=== PATIENT | female | born 1950 | race Caucasian/White ===

== ENCOUNTER 2020-02-06 16:31 | Inpatient (IN) ==
[2020-02-06 18:23] LABS: Basophils % 0.7 % (0.0-0.8); Eosinophils # 0.1 10*3/uL (0.0-0.87); Eosinophils % 2.8 % (0.00-10.9); Hematocrit 24.9 VOL% (35.7-47.0); Immature Granulocytes % 1.8 %; Immature Granulocytes Absolute 0.05 #; Lymphocytes # 0.5 10*3/uL (1.4-4.0); Lymphocytes % 18.7 % (21.3-54.2); Mean Corpuscular HGB Conc 32.1 GM/DL (32-36); Mean Corpuscular Volume 95.4 FL (87-102); Mean Platelet Volume 8.8 FL (9.6-12.0); Platelet Count 263 T/CUMM (130-400); Red Blood Count 2.61 MC/CUMM (3.8-5.5); Red Cell Distribution Width 15.6 % (9.3-17.3); White Blood Count 2.8 T/CUMM (4-12)
[2020-02-06 18:44] LABS: Albumin 2.4 G/DL (3.4-5.0); Bilirubin,Total 0.4 MG/DL (0.2-1.0); Calcium 8.9 MG/DL (8.5-10.1); Osmolality,Calculated 303.8 MOS/KG (273-304); Total Protein 6.1 G/DL (6.4-8.3)
[2020-02-06 18:55] LABS: Band Neutrophils 1 % (0-10); Lymphocytes 15 % (20-55); Platelet Estimate Normal; Segmented Neutrophils 81 % (50-85); Total Cells Counted 100
[2020-02-06] MEDS ORDERED: DEXTROSE 50% 25 GM/50 ML VIAL IV PRN (20:26)
[2020-02-06] MEDS ORDERED: GLUCAGON 1 MG VIAL IM PRN (20:26)
[2020-02-06] MEDS ORDERED: ENOXAPARIN 40 MG/0.4 ML SYRINGE SUBCUT SCH ×2 (20:30→21:06)
[2020-02-06] MEDS ORDERED: ALBUTEROL/IPRATROPIUM 3 ML NEB RESP TX PRN (20:32)
[2020-02-06] MEDS ORDERED: SODIUM POLYSTYRENE SULFATE 15 GM/60 ML BOTTLE PO STA (20:37)
[2020-02-06] MEDS ORDERED: ENOXAPARIN 40 MG/0.4 ML SYRINGE ONE (21:17)
[2020-02-06] MEDS: cloNIDine 0.1 MG TABLET PO PRN (21:45)
[2020-02-06] MEDS: ONDANSETRON 4 MG/2 ML VIAL IV PRN (21:45)
[2020-02-06 21:46] LABS: % Iron Saturation 23.7 % (18-50); Ferritin 64.1 ng/ml (8-252)
[2020-02-06 22:00] LABS: Thyroid Stimulating Hormone 1.4 uIU/ml (0.358-3.74)
[2020-02-06] MEDS ORDERED: FUROSEMIDE 40 MG/4 ML VIAL IV ONE (23:59)
[2020-02-07] MEDS: HEPARIN 5,000 UNIT/1 ML VIAL SUBCUT SCH ×3 (00:17→21:27)
[2020-02-07] MEDS: DULoxetine 30 MG CAPSULE PO SCH ×3 (00:22→21:15)
[2020-02-07] MEDS: ACETAMINOPHEN 500 MG TABLET PO SCH ×2 (00:22→21:14)
[2020-02-07] MEDS: METOPROLOL SUCCINATE XL 100 MG TABLET PO SCH ×3 (00:22→21:15)
[2020-02-07] MEDS: INSULIN REGULAR 100 UNIT/ML SUBCUT SCH ×4 (01:16→21:21)
[2020-02-07] MEDS: TRIAMCINOLONE 0.1% CREAM 15 GM TUBE TOP SCH ×3 (01:16→21:26)
[2020-02-07] MEDS: FERROUS SULFATE 300 MG/5 ML UDCUP PO SCH ×3 (01:16→21:17)
[2020-02-07 01:29] LABS: Bacteria,Urine Occasional /HPF (Few); Bilirubin,Urine Negative (Negative); Blood, Urine Large mg/dL (Negative); Glucose,Urine (UA) >=500 mg/dL (Negative); Ketones,Urine Negative (Negative); Nitrite,Urine Negative (Negative); Protein,Urine Negative; RBC,Urine 19 /HPF (0-4); Squamous Epithelial Cell,Urine Occasional /HPF (0-10); Urine Appearance CLEAR (Clear); Urine Color Straw (Yellow); Urine Specific Gravity 1.025 (1.001-1.035); Urine Urobilinogen < 2.0 EU/DL (0.2-1.0); WBC,Urine 51 /HPF (0-6)
[2020-02-07 05:37] LABS: Eosinophils # 0.1 10*3/uL (0.0-0.87); Eosinophils % 4.5 % (0.00-10.9); Hematocrit 22.3 VOL% (35.7-47.0); Hemoglobin 7.2 GM/DL (12.0-16.0); Immature Granulocytes % 0.6 %; Immature Granulocytes Absolute 0.02 #; Lymphocytes # 0.7 10*3/uL (1.4-4.0); Lymphocytes % 22.4 % (21.3-54.2); Mean Corpuscular HGB Conc 32.3 GM/DL (32-36); Mean Corpuscular Volume 95.3 FL (87-102); Mean Platelet Volume 8.8 FL (9.6-12.0); Monocytes % 9.3 % (1.7-12.7); Neutrophils % 62.2 % (38.7-73.9); Platelet Count 217 T/CUMM (130-400); Red Blood Count 2.34 MC/CUMM (3.8-5.5); Red Cell Distribution Width 15.5 % (9.3-17.3); White Blood Count 3.1 T/CUMM (4-12)
[2020-02-07 06:02] LABS: Eosinophils 1 % (0-10); Hypochromasia 2+; Lymphocytes 17 % (20-55); Microcytosis 1+; Ovalocytes Slight; Platelet Estimate Adequate; Segmented Neutrophils 75 % (50-85); Total Cells Counted 100
[2020-02-07 06:14] LABS: Albumin 2.2 G/DL (3.4-5.0); Bilirubin,Total 0.6 MG/DL (0.2-1.0); Osmolality,Calculated 304.5 MOS/KG (273-304); Risk Ratio 7.35; Total Protein 5.8 G/DL (6.4-8.3); VLDL CHOLESTEROL 42.2 MG/DL
[2020-02-07] MEDS ORDERED: FUROSEMIDE 100 MG/10 ML VIAL IV ONE (09:10)
[2020-02-07] MEDS ORDERED: FUROSEMIDE 100 MG/10 ML VIAL ONE (09:17)
[2020-02-07] MEDS: carBAMazepine 200 MG TABLET PO SCH (09:53)
[2020-02-07] MEDS: MAGNESIUM CHLORIDE 64 MG TABLET PO SCH (09:54)
[2020-02-07] MEDS: PANTOPRAZOLE 40 MG TABLET PO SCH (09:55)
[2020-02-07] MEDS: MONTELUKAST 10 MG TABLET PO SCH (09:55)
[2020-02-07] MEDS: ASPIRIN CHEW 81 MG TABLET PO SCH (09:55)
[2020-02-07] MEDS: MULTIVITAMIN (CENTRUM) TABLET PO SCH (09:57)
[2020-02-07] MEDS: DILTIAZEM CD 180 MG CAPSULE PO SCH (09:57)
[2020-02-07] MEDS: ISOSORBIDE MONONITRATE 30 MG TABLET PO SCH (09:58)
[2020-02-07] MEDS: LORATADINE 10 MG TABLET PO SCH (09:58)
[2020-02-07] MEDS: ATORVASTATIN 40 MG TABLET PO SCH (09:58)
[2020-02-07] MEDS: cloNIDine 0.3 MG/24 HR PATCH TRANSDERM SCH (10:06)
[2020-02-07] MEDS: FUROSEMIDE 40 MG/4 ML VIAL IV SCH ×2 (12:17→21:17)
[2020-02-07] MEDS ORDERED: HEPARIN 10,000 UNIT/10 ML VIAL ONE (14:40)
[2020-02-07 15:30] LABS: Hepatitis B Core IgM Quant 0.07 Index; Hepatitis B Surface Ag Quant < 0.10 Index; Hepatitis B Surface Ag Result Negative (Negative); Hepatitis C Virus Ab Quant 0.02 Index; Hepatitis C Virus Ab Result Negative (Negative)
[2020-02-07] MEDS: LEVOFLOXACIN INJ 500 MG in PREMIX 1 EACH IV SCH (21:25)
[2020-02-08] MEDS: CYCLOBENZAPRINE 10 MG TABLET PO PRN ×2 (05:00→21:43)
[2020-02-08 05:02] LABS: Basophils % 0.7 % (0.0-0.8); Eosinophils # 0.1 10*3/uL (0.0-0.87); Eosinophils % 3.7 % (0.00-10.9); Hematocrit 21.5 VOL% (35.7-47.0); Hemoglobin 6.9 GM/DL (12.0-16.0); Immature Granulocytes % 0.4 %; Immature Granulocytes Absolute 0.01 #; Lymphocytes # 0.5 10*3/uL (1.4-4.0); Lymphocytes % 19.3 % (21.3-54.2); Mean Corpuscular HGB Conc 32.1 GM/DL (32-36); Mean Corpuscular Volume 93.9 FL (87-102); Mean Platelet Volume 8.8 FL (9.6-12.0); Monocytes % 9.7 % (1.7-12.7); Neutrophils % 66.2 % (38.7-73.9); Platelet Count 195 T/CUMM (130-400); Red Blood Count 2.29 MC/CUMM (3.8-5.5); Red Cell Distribution Width 15.3 % (9.3-17.3); White Blood Count 2.7 T/CUMM (4-12)
[2020-02-08 05:23] LABS: Calcium 8.4 MG/DL (8.5-10.1); Osmolality,Calculated 298.4 MOS/KG (273-304)
[2020-02-08] MEDS ORDERED: HEPARIN 10,000 UNIT/10 ML VIAL ONE (09:41)
[2020-02-08] MEDS: INSULIN REGULAR 100 UNIT/ML SUBCUT SCH ×4 (10:55→21:46)
[2020-02-08] MEDS ORDERED: SODIUM CHLORIDE 0.9% 1,000 ML IV PRN (11:02)
[2020-02-08] MEDS: FUROSEMIDE 40 MG/4 ML VIAL IV SCH ×2 (12:26→15:55)
[2020-02-08] MEDS: MAGNESIUM CHLORIDE 64 MG TABLET PO SCH (12:27)
[2020-02-08] MEDS: carBAMazepine 200 MG TABLET PO SCH (12:27)
[2020-02-08] MEDS: METOPROLOL SUCCINATE XL 100 MG TABLET PO SCH ×2 (12:27→21:43)
[2020-02-08] MEDS: MULTIVITAMIN (CENTRUM) TABLET PO SCH (12:27)
[2020-02-08] MEDS: MONTELUKAST 10 MG TABLET PO SCH (12:28)
[2020-02-08] MEDS: DULoxetine 30 MG CAPSULE PO SCH ×2 (12:28→21:42)
[2020-02-08] MEDS: DILTIAZEM CD 180 MG CAPSULE PO SCH (12:28)
[2020-02-08] MEDS: PANTOPRAZOLE 40 MG TABLET PO SCH (12:28)
[2020-02-08] MEDS: ASPIRIN CHEW 81 MG TABLET PO SCH (12:29)
[2020-02-08] MEDS: ISOSORBIDE MONONITRATE 30 MG TABLET PO SCH (12:29)
[2020-02-08] MEDS: HEPARIN 5,000 UNIT/1 ML VIAL SUBCUT SCH ×2 (12:30→21:47)
[2020-02-08] MEDS: FERROUS SULFATE 300 MG/5 ML UDCUP PO SCH ×2 (12:30→21:43)
[2020-02-08] MEDS: LORATADINE 10 MG TABLET PO SCH (12:34)
[2020-02-08] MEDS: TRIAMCINOLONE 0.1% CREAM 15 GM TUBE TOP SCH (12:44)
[2020-02-08] MEDS: ATORVASTATIN 40 MG TABLET PO SCH (12:48)
[2020-02-08] MEDS: ACETAMINOPHEN 500 MG TABLET PO SCH (21:43)
[2020-02-09] MEDS: TRIAMCINOLONE 0.1% CREAM 15 GM TUBE TOP SCH ×3 (00:50→22:02)
[2020-02-09 04:48] LABS: Basophils % 0.3 % (0.0-0.8); Eosinophils # 0.1 10*3/uL (0.0-0.87); Eosinophils % 3.6 % (0.00-10.9); Hematocrit 20.5 VOL% (35.7-47.0); Hemoglobin 6.8 GM/DL (12.0-16.0); Immature Granulocytes % 0.6 %; Immature Granulocytes Absolute 0.02 #; Lymphocytes # 0.7 10*3/uL (1.4-4.0); Lymphocytes % 19.5 % (21.3-54.2); Mean Corpuscular HGB Conc 33.2 GM/DL (32-36); Mean Corpuscular Volume 93.6 FL (87-102); Mean Platelet Volume 9.2 FL (9.6-12.0); Monocytes % 9.6 % (1.7-12.7); Neutrophils % 66.4 % (38.7-73.9); Platelet Count 186 T/CUMM (130-400); Red Blood Count 2.19 MC/CUMM (3.8-5.5); Red Cell Distribution Width 15.6 % (9.3-17.3); White Blood Count 3.3 T/CUMM (4-12)
[2020-02-09 05:11] LABS: Calcium 8.1 MG/DL (8.5-10.1); Osmolality,Calculated 289.5 MOS/KG (273-304)
[2020-02-09] MEDS: hydrALAZINE 20 MG/1 ML VIAL IV PRN (07:43)
[2020-02-09] MEDS: INSULIN REGULAR 100 UNIT/ML SUBCUT SCH ×4 (10:11→20:38)
[2020-02-09] MEDS: MAGNESIUM CHLORIDE 64 MG TABLET PO SCH (10:12)
[2020-02-09] MEDS: MONTELUKAST 10 MG TABLET PO SCH (10:12)
[2020-02-09] MEDS: FERROUS SULFATE 300 MG/5 ML UDCUP PO SCH ×2 (10:12→20:38)
[2020-02-09] MEDS: LORATADINE 10 MG TABLET PO SCH (10:13)
[2020-02-09] MEDS: DULoxetine 30 MG CAPSULE PO SCH ×2 (10:13→20:40)
[2020-02-09] MEDS: PANTOPRAZOLE 40 MG TABLET PO SCH (10:13)
[2020-02-09] MEDS: DILTIAZEM CD 180 MG CAPSULE PO SCH (10:13)
[2020-02-09] MEDS: ASPIRIN CHEW 81 MG TABLET PO SCH (10:14)
[2020-02-09] MEDS: ATORVASTATIN 40 MG TABLET PO SCH (10:15)
[2020-02-09] MEDS: carBAMazepine 200 MG TABLET PO SCH (10:15)
[2020-02-09] MEDS: MULTIVITAMIN (CENTRUM) TABLET PO SCH (10:15)
[2020-02-09] MEDS: FUROSEMIDE 40 MG/4 ML VIAL IV SCH ×2 (13:46→17:38)
[2020-02-09] MEDS: METOPROLOL SUCCINATE XL 100 MG TABLET PO SCH ×2 (13:47→20:40)
[2020-02-09] MEDS: ISOSORBIDE MONONITRATE 30 MG TABLET PO SCH (13:47)
[2020-02-09] MEDS: HEPARIN 5,000 UNIT/1 ML VIAL SUBCUT SCH ×2 (13:48→20:40)
[2020-02-09] MEDS: LEVOFLOXACIN INJ 500 MG in PREMIX 1 EACH IV SCH (17:40)
[2020-02-09] MEDS ORDERED: HEPARIN 10,000 UNIT/10 ML VIAL ONE (17:47)
[2020-02-09] MEDS: CYCLOBENZAPRINE 10 MG TABLET PO PRN (20:38)
[2020-02-09] MEDS: ACETAMINOPHEN 500 MG TABLET PO SCH (20:40)
[2020-02-10 06:09] LABS: Basophils % 0.3 % (0.0-0.8); Eosinophils # 0.1 10*3/uL (0.0-0.87); Eosinophils % 3.1 % (0.00-10.9); Hematocrit 32.1 VOL% (35.7-47.0); Hemoglobin 10.6 GM/DL (12.0-16.0); Immature Granulocytes Absolute 0.04 #; Lymphocytes # 0.6 10*3/uL (1.4-4.0); Lymphocytes % 14.6 % (21.3-54.2); Mean Corpuscular Volume 88.2 FL (87-102); Mean Platelet Volume 9.5 FL (9.6-12.0); Monocytes % 10.2 % (1.7-12.7); Neutrophils % 70.8 % (38.7-73.9); Platelet Count 170 T/CUMM (130-400); Red Blood Count 3.64 MC/CUMM (3.8-5.5); Red Cell Distribution Width 16.1 % (9.3-17.3); White Blood Count 3.8 T/CUMM (4-12)
[2020-02-10 06:27] LABS: Calcium 8.3 MG/DL (8.5-10.1); Osmolality,Calculated 281.7 MOS/KG (273-304)
[2020-02-10] MEDS: FUROSEMIDE 40 MG/4 ML VIAL IV SCH ×2 (08:11→15:52)
[2020-02-10] MEDS: cloNIDine 0.1 MG TABLET PO PRN ×2 (08:11→11:03)
[2020-02-10] MEDS: MONTELUKAST 10 MG TABLET PO SCH (09:41)
[2020-02-10] MEDS: METOPROLOL SUCCINATE XL 100 MG TABLET PO SCH ×2 (09:41→22:08)
[2020-02-10] MEDS: MULTIVITAMIN (CENTRUM) TABLET PO SCH (09:41)
[2020-02-10] MEDS: DULoxetine 30 MG CAPSULE PO SCH ×2 (09:41→22:08)
[2020-02-10] MEDS: MAGNESIUM CHLORIDE 64 MG TABLET PO SCH (09:41)
[2020-02-10] MEDS: DILTIAZEM CD 180 MG CAPSULE PO SCH (09:41)
[2020-02-10] MEDS: ASPIRIN CHEW 81 MG TABLET PO SCH (09:41)
[2020-02-10] MEDS: carBAMazepine 200 MG TABLET PO SCH (09:41)
[2020-02-10] MEDS: PANTOPRAZOLE 40 MG TABLET PO SCH (09:41)
[2020-02-10] MEDS: FERROUS SULFATE 300 MG/5 ML UDCUP PO SCH ×2 (09:42→22:07)
[2020-02-10] MEDS: ISOSORBIDE MONONITRATE 30 MG TABLET PO SCH (09:42)
[2020-02-10] MEDS: LORATADINE 10 MG TABLET PO SCH (09:42)
[2020-02-10] MEDS: ATORVASTATIN 40 MG TABLET PO SCH (09:42)
[2020-02-10] MEDS: INSULIN REGULAR 100 UNIT/ML SUBCUT SCH ×4 (09:44→20:09)
[2020-02-10] MEDS: HEPARIN 5,000 UNIT/1 ML VIAL SUBCUT SCH ×2 (09:44→22:09)
[2020-02-10] MEDS: hydrALAZINE 20 MG/1 ML VIAL IV PRN (10:50)
[2020-02-10] MEDS: TRIAMCINOLONE 0.1% CREAM 15 GM TUBE TOP SCH ×2 (11:51→22:52)
[2020-02-10] MEDS: minoxidiL 2.5 MG TABLET PO SCH (22:08)
[2020-02-10] MEDS: ACETAMINOPHEN 500 MG TABLET PO SCH (22:08)
[2020-02-11 06:12] LABS: Basophils % 0.5 % (0.0-0.8); Eosinophils # 0.1 10*3/uL (0.0-0.87); Eosinophils % 2.8 % (0.00-10.9); Hematocrit 31.9 VOL% (35.7-47.0); Hemoglobin 10.5 GM/DL (12.0-16.0); Immature Granulocytes % 0.5 %; Immature Granulocytes Absolute 0.02 #; Lymphocytes # 0.5 10*3/uL (1.4-4.0); Lymphocytes % 12.6 % (21.3-54.2); Mean Corpuscular HGB Conc 32.9 GM/DL (32-36); Mean Corpuscular Volume 89.6 FL (87-102); Mean Platelet Volume 9.8 FL (9.6-12.0); Monocytes % 10.3 % (1.7-12.7); Neutrophils % 73.3 % (38.7-73.9); Platelet Count 162 T/CUMM (130-400); Red Blood Count 3.56 MC/CUMM (3.8-5.5); Red Cell Distribution Width 16.2 % (9.3-17.3); White Blood Count 3.9 T/CUMM (4-12)
[2020-02-11 06:25] LABS: Calcium 8.9 MG/DL (8.5-10.1); Osmolality,Calculated 279.2 MOS/KG (273-304)
[2020-02-11] MEDS: FUROSEMIDE 40 MG/4 ML VIAL IV SCH ×2 (08:18→15:06)
[2020-02-11] MEDS: DILTIAZEM CD 180 MG CAPSULE PO SCH (08:19)
[2020-02-11] MEDS: MAGNESIUM CHLORIDE 64 MG TABLET PO SCH (08:19)
[2020-02-11] MEDS: FERROUS SULFATE 300 MG/5 ML UDCUP PO SCH ×2 (08:19→22:57)
[2020-02-11] MEDS: DULoxetine 30 MG CAPSULE PO SCH ×2 (08:19→22:58)
[2020-02-11] MEDS: LORATADINE 10 MG TABLET PO SCH (08:20)
[2020-02-11] MEDS: MONTELUKAST 10 MG TABLET PO SCH (08:20)
[2020-02-11] MEDS: MULTIVITAMIN (CENTRUM) TABLET PO SCH (08:20)
[2020-02-11] MEDS: ASPIRIN CHEW 81 MG TABLET PO SCH (08:20)
[2020-02-11] MEDS: ATORVASTATIN 40 MG TABLET PO SCH (08:20)
[2020-02-11] MEDS: INSULIN REGULAR 100 UNIT/ML SUBCUT SCH ×4 (08:21→22:59)
[2020-02-11] MEDS: PANTOPRAZOLE 40 MG TABLET PO SCH (08:21)
[2020-02-11] MEDS: carBAMazepine 200 MG TABLET PO SCH (08:21)
[2020-02-11] MEDS: METOPROLOL SUCCINATE XL 100 MG TABLET PO SCH ×2 (08:47→22:58)
[2020-02-11] MEDS: ISOSORBIDE MONONITRATE 30 MG TABLET PO SCH (08:47)
[2020-02-11] MEDS: minoxidiL 2.5 MG TABLET PO SCH ×2 (08:48→22:58)
[2020-02-11] MEDS: HEPARIN 5,000 UNIT/1 ML VIAL SUBCUT SCH ×2 (08:51→23:00)
[2020-02-11] MEDS: TRIAMCINOLONE 0.1% CREAM 15 GM TUBE TOP SCH ×2 (09:39→22:59)
[2020-02-11] MEDS: FLUTICASONE 50 MCG NASAL SPRAY 16 GM BOTTLE BOTH NARES SCH (15:12)
[2020-02-11] MEDS: ONDANSETRON 4 MG/2 ML VIAL IV PRN (17:52)
[2020-02-11] MEDS: ACETAMINOPHEN 500 MG TABLET PO SCH (22:58)
[2020-02-12 06:03] LABS: Calcium 8.6 MG/DL (8.5-10.1); Osmolality,Calculated 283.2 MOS/KG (273-304)
[2020-02-12] MEDS: INSULIN REGULAR 100 UNIT/ML SUBCUT SCH ×4 (08:30→22:18)
[2020-02-12] MEDS: minoxidiL 2.5 MG TABLET PO SCH (08:49)
[2020-02-12] MEDS: HEPARIN 5,000 UNIT/1 ML VIAL SUBCUT SCH ×2 (08:50→21:57)
[2020-02-12] MEDS: FERROUS SULFATE 300 MG/5 ML UDCUP PO SCH ×2 (08:50→21:54)
[2020-02-12] MEDS: FUROSEMIDE 40 MG/4 ML VIAL IV SCH ×2 (08:50→17:01)
[2020-02-12] MEDS: DILTIAZEM CD 180 MG CAPSULE PO SCH (08:50)
[2020-02-12] MEDS: LORATADINE 10 MG TABLET PO SCH (08:50)
[2020-02-12] MEDS: carBAMazepine 200 MG TABLET PO SCH (08:50)
[2020-02-12] MEDS: METOPROLOL SUCCINATE XL 100 MG TABLET PO SCH ×2 (08:51→21:54)
[2020-02-12] MEDS: ATORVASTATIN 40 MG TABLET PO SCH (08:51)
[2020-02-12] MEDS: MULTIVITAMIN (CENTRUM) TABLET PO SCH (08:51)
[2020-02-12] MEDS: ISOSORBIDE MONONITRATE 30 MG TABLET PO SCH (08:51)
[2020-02-12] MEDS: ASPIRIN CHEW 81 MG TABLET PO SCH (08:51)
[2020-02-12] MEDS: MAGNESIUM CHLORIDE 64 MG TABLET PO SCH (08:51)
[2020-02-12] MEDS: DULoxetine 30 MG CAPSULE PO SCH ×2 (08:51→21:54)
[2020-02-12] MEDS: PANTOPRAZOLE 40 MG TABLET PO SCH (08:51)
[2020-02-12] MEDS: MONTELUKAST 10 MG TABLET PO SCH (08:51)
[2020-02-12] MEDS: FLUTICASONE 50 MCG NASAL SPRAY 16 GM BOTTLE BOTH NARES SCH (08:52)
[2020-02-12] MEDS: TRIAMCINOLONE 0.1% CREAM 15 GM TUBE TOP SCH ×2 (08:52→21:56)
[2020-02-12] MEDS ORDERED: ceFAZolin 1,000 MG in SYRINGE 1 EACH IV ONE (11:03)
[2020-02-12] MEDS ORDERED: HEPARIN 10,000 UNIT/10 ML VIAL IV SCH (11:30)
[2020-02-12] MEDS ORDERED: TUBERCULIN SKIN TEST 0.1 ML SYRINGE INTRADERM ONE (17:09)
[2020-02-12] MEDS: ACETAMINOPHEN 500 MG TABLET PO SCH (21:54)
[2020-02-13] MEDS: minoxidiL 2.5 MG TABLET PO SCH ×3 (00:41→22:22)
[2020-02-13] MEDS ORDERED: ceFAZolin 1,000 MG in SYRINGE 1 EACH IV ONE (05:30)
[2020-02-13] MEDS: INSULIN REGULAR 100 UNIT/ML SUBCUT SCH ×4 (06:59→23:49)
[2020-02-13] MEDS ORDERED: propofoL 200 MG/20 ML VIAL IV ONE (08:00)
[2020-02-13] MEDS ORDERED: LIDOCAINE 2% 5 ML VIAL ONE (08:00)
[2020-02-13] MEDS ORDERED: fentaNYL 100 MCG/2 ML VIAL ONE (08:01)
[2020-02-13] MEDS ORDERED: ONDANSETRON 4 MG/2 ML VIAL ONE (08:01)
[2020-02-13] MEDS ORDERED: MIDAZOLAM 2 MG/2 ML VIAL ONE (08:01)
[2020-02-13] MEDS ORDERED: DEXAMETHASONE 4 MG/1 ML VIAL ONE (08:01)
[2020-02-13] MEDS ORDERED: hydrALAZINE 20 MG/1 ML VIAL ONE (08:01)
[2020-02-13] MEDS ORDERED: ETOMIDATE 40 MG/20 ML VIAL IV ONE (08:02)
[2020-02-13] MEDS: METOPROLOL SUCCINATE XL 100 MG TABLET PO SCH ×2 (09:32→22:21)
[2020-02-13] MEDS: DULoxetine 30 MG CAPSULE PO SCH ×2 (09:32→22:21)
[2020-02-13] MEDS: DILTIAZEM CD 180 MG CAPSULE PO SCH (09:32)
[2020-02-13] MEDS: carBAMazepine 200 MG TABLET PO SCH (09:32)
[2020-02-13] MEDS: HEPARIN 5,000 UNIT/1 ML VIAL SUBCUT SCH ×2 (09:33→22:27)
[2020-02-13] MEDS: PANTOPRAZOLE 40 MG TABLET PO SCH (09:33)
[2020-02-13] MEDS: ATORVASTATIN 40 MG TABLET PO SCH (09:33)
[2020-02-13] MEDS: MONTELUKAST 10 MG TABLET PO SCH (09:33)
[2020-02-13] MEDS: MAGNESIUM CHLORIDE 64 MG TABLET PO SCH (09:33)
[2020-02-13] MEDS: ISOSORBIDE MONONITRATE 30 MG TABLET PO SCH (09:33)
[2020-02-13] MEDS: LORATADINE 10 MG TABLET PO SCH (09:33)
[2020-02-13] MEDS: FUROSEMIDE 40 MG/4 ML VIAL IV SCH ×2 (09:34→15:34)
[2020-02-13] MEDS: ASPIRIN CHEW 81 MG TABLET PO SCH (09:34)
[2020-02-13] MEDS: FERROUS SULFATE 300 MG/5 ML UDCUP PO SCH ×2 (09:34→22:24)
[2020-02-13] MEDS: MULTIVITAMIN (CENTRUM) TABLET PO SCH (09:34)
[2020-02-13] MEDS: FLUTICASONE 50 MCG NASAL SPRAY 16 GM BOTTLE BOTH NARES SCH (09:35)
[2020-02-13] MEDS: TRIAMCINOLONE 0.1% CREAM 15 GM TUBE TOP SCH (14:29)
[2020-02-13 17:50] LABS: Hematocrit 33.7 VOL% (35.7-47.0); Hemoglobin 10.7 GM/DL (12.0-16.0)
[2020-02-13] MEDS: ACETAMINOPHEN 500 MG TABLET PO SCH (22:23)
[2020-02-14] MEDS: TRIAMCINOLONE 0.1% CREAM 15 GM TUBE TOP SCH ×3 (05:18→22:19)
[2020-02-14 08:01] LABS: Basophils # 0.1 10*3/uL (0.0-0.2); Eosinophils # 0.2 10*3/uL (0.0-0.87); Eosinophils % 3.6 % (0.00-10.9); Hematocrit 28.8 VOL% (35.7-47.0); Hemoglobin 9.4 GM/DL (12.0-16.0); Immature Granulocytes % 0.5 %; Immature Granulocytes Absolute 0.03 #; Lymphocytes # 0.7 10*3/uL (1.4-4.0); Lymphocytes % 12.2 % (21.3-54.2); Mean Corpuscular HGB Conc 32.6 GM/DL (32-36); Mean Corpuscular Volume 91.1 FL (87-102); Mean Platelet Volume 9.6 FL (9.6-12.0); Monocytes % 12.2 % (1.7-12.7); Neutrophils % 70.5 % (38.7-73.9); Platelet Count 259 T/CUMM (130-400); Red Blood Count 3.16 MC/CUMM (3.8-5.5); Red Cell Distribution Width 15.8 % (9.3-17.3); White Blood Count 5.8 T/CUMM (4-12)
[2020-02-14] MEDS: PANTOPRAZOLE 40 MG TABLET PO SCH (09:57)
[2020-02-14] MEDS: DILTIAZEM CD 180 MG CAPSULE PO SCH (09:57)
[2020-02-14] MEDS: DULoxetine 30 MG CAPSULE PO SCH ×2 (09:57→22:12)
[2020-02-14] MEDS: ISOSORBIDE MONONITRATE 30 MG TABLET PO SCH (09:57)
[2020-02-14] MEDS: LORATADINE 10 MG TABLET PO SCH (09:57)
[2020-02-14] MEDS: ATORVASTATIN 40 MG TABLET PO SCH (09:58)
[2020-02-14] MEDS: FERROUS SULFATE 300 MG/5 ML UDCUP PO SCH ×2 (09:58→22:15)
[2020-02-14] MEDS: MAGNESIUM CHLORIDE 64 MG TABLET PO SCH (09:58)
[2020-02-14] MEDS: FUROSEMIDE 40 MG/4 ML VIAL IV SCH ×2 (09:58→17:05)
[2020-02-14] MEDS: carBAMazepine 200 MG TABLET PO SCH (09:58)
[2020-02-14] MEDS: METOPROLOL SUCCINATE XL 100 MG TABLET PO SCH ×2 (09:58→22:12)
[2020-02-14] MEDS: ASPIRIN CHEW 81 MG TABLET PO SCH (09:58)
[2020-02-14] MEDS: MULTIVITAMIN (CENTRUM) TABLET PO SCH (09:58)
[2020-02-14] MEDS: cloNIDine 0.3 MG/24 HR PATCH TRANSDERM SCH (10:00)
[2020-02-14] MEDS: FLUTICASONE 50 MCG NASAL SPRAY 16 GM BOTTLE BOTH NARES SCH (10:01)
[2020-02-14] MEDS: MONTELUKAST 10 MG TABLET PO SCH (10:01)
[2020-02-14] MEDS: INSULIN REGULAR 100 UNIT/ML SUBCUT SCH ×4 (10:08→22:19)
[2020-02-14] MEDS: minoxidiL 2.5 MG TABLET PO SCH ×2 (10:09→22:13)
[2020-02-14] MEDS: HEPARIN 5,000 UNIT/1 ML VIAL SUBCUT SCH (10:10)
[2020-02-14 12:10] LABS: Hematocrit 28.9 VOL% (35.7-47.0); Hemoglobin 9.7 GM/DL (12.0-16.0)
[2020-02-14] MEDS: ACETAMINOPHEN 500 MG TABLET PO SCH (22:13)
[2020-02-14] MEDS ORDERED: ZALEPLON 5 MG CAPSULE PO ONE (23:04)
[2020-02-15 05:42] LABS: Basophils # 0.1 10*3/uL (0.0-0.2); Basophils % 0.9 % (0.0-0.8); Eosinophils # 0.4 10*3/uL (0.0-0.87); Eosinophils % 7.3 % (0.00-10.9); Hematocrit 24.2 VOL% (35.7-47.0); Hemoglobin 7.9 GM/DL (12.0-16.0); Immature Granulocytes % 0.4 %; Immature Granulocytes Absolute 0.02 #; Lymphocytes # 0.7 10*3/uL (1.4-4.0); Lymphocytes % 12.1 % (21.3-54.2); Mean Corpuscular HGB Conc 32.6 GM/DL (32-36); Mean Corpuscular Volume 91.3 FL (87-102); Mean Platelet Volume 9.4 FL (9.6-12.0); Monocytes % 12.5 % (1.7-12.7); Neutrophils % 66.8 % (38.7-73.9); Platelet Count 208 T/CUMM (130-400); Red Blood Count 2.65 MC/CUMM (3.8-5.5); White Blood Count 5.4 T/CUMM (4-12)
[2020-02-15 06:00] LABS: Calcium 8.8 MG/DL (8.5-10.1); Osmolality,Calculated 288.4 MOS/KG (273-304)
[2020-02-15] MEDS: INSULIN REGULAR 100 UNIT/ML SUBCUT SCH ×4 (08:22→21:30)
[2020-02-15] MEDS: FUROSEMIDE 40 MG/4 ML VIAL IV SCH ×2 (09:26→16:45)
[2020-02-15] MEDS ORDERED: HEPARIN 10,000 UNIT/10 ML VIAL ONE (10:16)
[2020-02-15] MEDS: TRIAMCINOLONE 0.1% CREAM 15 GM TUBE TOP SCH ×2 (10:20→21:24)
[2020-02-15 12:27] LABS: Hematocrit 24.7 VOL% (35.7-47.0); Hemoglobin 8.2 GM/DL (12.0-16.0)
[2020-02-15] MEDS: DULoxetine 30 MG CAPSULE PO SCH ×2 (14:18→21:23)
[2020-02-15] MEDS: FLUTICASONE 50 MCG NASAL SPRAY 16 GM BOTTLE BOTH NARES SCH (14:19)
[2020-02-15] MEDS: FERROUS SULFATE 300 MG/5 ML UDCUP PO SCH ×2 (14:19→21:23)
[2020-02-15] MEDS: minoxidiL 2.5 MG TABLET PO SCH ×2 (14:19→21:23)
[2020-02-15] MEDS: METOPROLOL SUCCINATE XL 100 MG TABLET PO SCH ×2 (14:20→21:24)
[2020-02-15] MEDS: ISOSORBIDE MONONITRATE 30 MG TABLET PO SCH (14:29)
[2020-02-15] MEDS: carBAMazepine 200 MG TABLET PO SCH (14:29)
[2020-02-15] MEDS: MULTIVITAMIN (CENTRUM) TABLET PO SCH (14:29)
[2020-02-15] MEDS: DILTIAZEM CD 180 MG CAPSULE PO SCH (14:29)
[2020-02-15] MEDS: MAGNESIUM CHLORIDE 64 MG TABLET PO SCH (14:29)
[2020-02-15] MEDS: LORATADINE 10 MG TABLET PO SCH (14:29)
[2020-02-15] MEDS: PANTOPRAZOLE 40 MG TABLET PO SCH (14:30)
[2020-02-15] MEDS: MONTELUKAST 10 MG TABLET PO SCH (14:30)
[2020-02-15] MEDS: ATORVASTATIN 40 MG TABLET PO SCH (14:33)
[2020-02-15] MEDS: ACETAMINOPHEN 500 MG TABLET PO SCH (21:23)
[2020-02-15] MEDS: HEPARIN 5,000 UNIT/1 ML VIAL SUBCUT SCH (21:31)
[2020-02-16 05:45] LABS: Basophils % 1.1 % (0.0-0.8); Eosinophils # 0.3 10*3/uL (0.0-0.87); Eosinophils % 7.5 % (0.00-10.9); Hematocrit 22.6 VOL% (35.7-47.0); Hemoglobin 7.6 GM/DL (12.0-16.0); Immature Granulocytes % 0.6 %; Immature Granulocytes Absolute 0.02 #; Lymphocytes # 0.7 10*3/uL (1.4-4.0); Lymphocytes % 18.7 % (21.3-54.2); Mean Corpuscular HGB Conc 33.6 GM/DL (32-36); Mean Corpuscular Volume 90.4 FL (87-102); Mean Platelet Volume 10.2 FL (9.6-12.0); Monocytes % 15.6 % (1.7-12.7); Neutrophils % 56.5 % (38.7-73.9); Platelet Count 211 T/CUMM (130-400); Red Cell Distribution Width 15.7 % (9.3-17.3); White Blood Count 3.6 T/CUMM (4-12)
[2020-02-16 06:31] LABS: Eosinophils 3 % (0-10); Hypochromasia 2+; Lymphocytes 17 % (20-55); Microcytosis 1+; Platelet Estimate Adequate; Segmented Neutrophils 70 % (50-85); Total Cells Counted 100
[2020-02-16] MEDS: INSULIN REGULAR 100 UNIT/ML SUBCUT SCH ×4 (08:47→21:34)
[2020-02-16] MEDS ORDERED: SECUKINUMAB 150 MG/ML SUBCUT SCH (09:00)
[2020-02-16] MEDS: DULoxetine 30 MG CAPSULE PO SCH ×2 (11:26→21:33)
[2020-02-16] MEDS: FUROSEMIDE 40 MG/4 ML VIAL IV SCH ×2 (11:26→17:31)
[2020-02-16] MEDS: FLUTICASONE 50 MCG NASAL SPRAY 16 GM BOTTLE BOTH NARES SCH (11:27)
[2020-02-16] MEDS: minoxidiL 2.5 MG TABLET PO SCH ×2 (11:27→21:33)
[2020-02-16] MEDS: TRIAMCINOLONE 0.1% CREAM 15 GM TUBE TOP SCH ×2 (11:27→21:33)
[2020-02-16] MEDS: METOPROLOL SUCCINATE XL 100 MG TABLET PO SCH ×2 (11:27→21:33)
[2020-02-16] MEDS: FERROUS SULFATE 300 MG/5 ML UDCUP PO SCH ×2 (11:27→21:33)
[2020-02-16] MEDS: ATORVASTATIN 40 MG TABLET PO SCH (12:04)
[2020-02-16] MEDS: carBAMazepine 200 MG TABLET PO SCH (12:04)
[2020-02-16] MEDS: LORATADINE 10 MG TABLET PO SCH (12:04)
[2020-02-16] MEDS: MAGNESIUM CHLORIDE 64 MG TABLET PO SCH (12:04)
[2020-02-16] MEDS: ISOSORBIDE MONONITRATE 30 MG TABLET PO SCH (12:04)
[2020-02-16] MEDS: MONTELUKAST 10 MG TABLET PO SCH (12:04)
[2020-02-16] MEDS: PANTOPRAZOLE 40 MG TABLET PO SCH (12:04)
[2020-02-16] MEDS: DILTIAZEM CD 180 MG CAPSULE PO SCH (12:04)
[2020-02-16] MEDS: HEPARIN 5,000 UNIT/1 ML VIAL SUBCUT SCH ×2 (12:05→21:34)
[2020-02-16] MEDS: MULTIVITAMIN (CENTRUM) TABLET PO SCH (12:05)
[2020-02-16] MEDS: ACETAMINOPHEN 500 MG TABLET PO SCH (21:33)
[2020-02-16] MEDS: ACETAMINOPHEN 325 MG TABLET PO PRN (23:51)
[2020-02-17 05:49] LABS: Basophils % 1.2 % (0.0-0.8); Eosinophils # 0.3 10*3/uL (0.0-0.87); Eosinophils % 9.9 % (0.00-10.9); Hematocrit 21.9 VOL% (35.7-47.0); Hemoglobin 7.3 GM/DL (12.0-16.0); Immature Granulocytes % 0.3 %; Immature Granulocytes Absolute 0.01 #; Lymphocytes # 0.6 10*3/uL (1.4-4.0); Lymphocytes % 18.4 % (21.3-54.2); Mean Corpuscular HGB Conc 33.3 GM/DL (32-36); Mean Corpuscular Volume 90.9 FL (87-102); Mean Platelet Volume 9.9 FL (9.6-12.0); Monocytes % 14.9 % (1.7-12.7); Neutrophils % 55.3 % (38.7-73.9); Platelet Count 224 T/CUMM (130-400); Red Blood Count 2.41 MC/CUMM (3.8-5.5); Red Cell Distribution Width 15.4 % (9.3-17.3); White Blood Count 3.4 T/CUMM (4-12)
[2020-02-17 06:00] LABS: Calcium 8.8 MG/DL (8.5-10.1); Osmolality,Calculated 279.1 MOS/KG (273-304)
[2020-02-17] MEDS ORDERED: SODIUM CHLORIDE 0.9% 1,000 ML IV PRN (08:49)
[2020-02-17] MEDS: INSULIN REGULAR 100 UNIT/ML SUBCUT SCH ×4 (09:08→21:33)
[2020-02-17] MEDS ORDERED: ZOLPIDEM 5 MG TABLET PO PRN (09:23)
[2020-02-17] MEDS: DILTIAZEM CD 180 MG CAPSULE PO SCH (09:42)
[2020-02-17] MEDS: MAGNESIUM CHLORIDE 64 MG TABLET PO SCH (09:43)
[2020-02-17] MEDS: carBAMazepine 200 MG TABLET PO SCH (09:43)
[2020-02-17] MEDS: ISOSORBIDE MONONITRATE 30 MG TABLET PO SCH (09:44)
[2020-02-17] MEDS: ATORVASTATIN 40 MG TABLET PO SCH (09:44)
[2020-02-17] MEDS: DULoxetine 30 MG CAPSULE PO SCH ×2 (09:44→21:30)
[2020-02-17] MEDS: MULTIVITAMIN (CENTRUM) TABLET PO SCH (09:44)
[2020-02-17] MEDS: LORATADINE 10 MG TABLET PO SCH (09:45)
[2020-02-17] MEDS: PANTOPRAZOLE 40 MG TABLET PO SCH (09:45)
[2020-02-17] MEDS: FERROUS SULFATE 300 MG/5 ML UDCUP PO SCH ×2 (09:45→21:30)
[2020-02-17] MEDS: MONTELUKAST 10 MG TABLET PO SCH (09:45)
[2020-02-17] MEDS: FUROSEMIDE 40 MG/4 ML VIAL IV SCH ×2 (09:49→17:19)
[2020-02-17] MEDS: HEPARIN 5,000 UNIT/1 ML VIAL SUBCUT SCH ×2 (09:49→21:30)
[2020-02-17] MEDS: minoxidiL 2.5 MG TABLET PO SCH ×2 (09:49→21:30)
[2020-02-17] MEDS: FLUTICASONE 50 MCG NASAL SPRAY 16 GM BOTTLE BOTH NARES SCH (09:59)
[2020-02-17] MEDS: TRIAMCINOLONE 0.1% CREAM 15 GM TUBE TOP SCH ×2 (09:59→21:34)
[2020-02-17] MEDS: METOPROLOL SUCCINATE XL 100 MG TABLET PO SCH ×2 (10:00→21:30)
[2020-02-17] MEDS: ACETAMINOPHEN 500 MG TABLET PO SCH (21:30)
[2020-02-18] MEDS: ACETAMINOPHEN 325 MG TABLET PO PRN (05:34)
[2020-02-18 06:11] LABS: Basophils % 0.9 % (0.0-0.8); Eosinophils # 0.3 10*3/uL (0.0-0.87); Eosinophils % 8.1 % (0.00-10.9); Hematocrit 22.6 VOL% (35.7-47.0); Hemoglobin 7.3 GM/DL (12.0-16.0); Immature Granulocytes % 0.6 %; Immature Granulocytes Absolute 0.02 #; Lymphocytes # 0.5 10*3/uL (1.4-4.0); Lymphocytes % 15.1 % (21.3-54.2); Mean Corpuscular HGB Conc 32.3 GM/DL (32-36); Mean Platelet Volume 9.7 FL (9.6-12.0); Monocytes % 13.1 % (1.7-12.7); Neutrophils % 62.2 % (38.7-73.9); Platelet Count 218 T/CUMM (130-400); Red Blood Count 2.43 MC/CUMM (3.8-5.5); Red Cell Distribution Width 15.2 % (9.3-17.3); White Blood Count 3.4 T/CUMM (4-12)
[2020-02-18 06:27] LABS: Osmolality,Calculated 279.4 MOS/KG (273-304)
[2020-02-18] MEDS: INSULIN REGULAR 100 UNIT/ML SUBCUT SCH (07:30)
[2020-02-18] MEDS: carBAMazepine 200 MG TABLET PO SCH (09:41)
[2020-02-18] MEDS: MONTELUKAST 10 MG TABLET PO SCH (09:42)
[2020-02-18] MEDS: ASPIRIN CHEW 81 MG TABLET PO SCH (09:42)
[2020-02-18] MEDS: MULTIVITAMIN (CENTRUM) TABLET PO SCH (09:42)
[2020-02-18] MEDS: METOPROLOL SUCCINATE XL 100 MG TABLET PO SCH (09:42)
[2020-02-18] MEDS: DILTIAZEM CD 180 MG CAPSULE PO SCH (09:42)
[2020-02-18] MEDS: ATORVASTATIN 40 MG TABLET PO SCH (09:42)
[2020-02-18] MEDS: minoxidiL 2.5 MG TABLET PO SCH (09:42)
[2020-02-18] MEDS: LORATADINE 10 MG TABLET PO SCH (09:42)
[2020-02-18] MEDS: ISOSORBIDE MONONITRATE 30 MG TABLET PO SCH (09:42)
[2020-02-18] MEDS: FERROUS SULFATE 300 MG/5 ML UDCUP PO SCH (09:43)
[2020-02-18] MEDS: FUROSEMIDE 40 MG/4 ML VIAL IV SCH (09:43)
[2020-02-18] MEDS: HEPARIN 5,000 UNIT/1 ML VIAL SUBCUT SCH (09:43)
[2020-02-18] MEDS: FLUTICASONE 50 MCG NASAL SPRAY 16 GM BOTTLE BOTH NARES SCH (09:45)
[2020-02-18] MEDS: PANTOPRAZOLE 40 MG TABLET PO SCH (09:45)
[2020-02-18] MEDS: DULoxetine 30 MG CAPSULE PO SCH (09:46)
[2020-02-18] MEDS: MAGNESIUM CHLORIDE 64 MG TABLET PO SCH (09:48)
[2020-02-18] MEDS: TRIAMCINOLONE 0.1% CREAM 15 GM TUBE TOP SCH (11:36)
[2020-02-18 11:48] VITALS: BP 168/75
== END 2020-02-18 13:32 | disposition swing bed (61) | DRG 291 ==
LOC: N.ED 16:31 → SUATTDRO 20:25 → N.EDINP 20:25 → N.TELES 21:31
PROVIDERS: ADMIT Internal Medicine; ATTEND Internal Medicine

== ENCOUNTER 2020-03-21 11:38 | Inpatient (IN) ==
[2020-03-21 12:55] LABS: Basophils % 0.4 % (0.0-0.8); Eosinophils # 0.1 10*3/uL (0.0-0.87); Eosinophils % 1.2 % (0.00-10.9); Hemoglobin 8.5 GM/DL (12.0-16.0); Immature Granulocytes % 0.8 %; Immature Granulocytes Absolute 0.04 #; Lymphocytes # 0.4 10*3/uL (1.4-4.0); Mean Corpuscular HGB Conc 32.7 GM/DL (32-36); Mean Corpuscular Volume 95.9 FL (87-102); Mean Platelet Volume 9.1 FL (9.6-12.0); Monocytes % 5.8 % (1.7-12.7); Neutrophils % 84.8 % (38.7-73.9); Platelet Count 264 T/CUMM (130-400); Red Blood Count 2.71 MC/CUMM (3.8-5.5); Red Cell Distribution Width 14.9 % (9.3-17.3); White Blood Count 5.1 T/CUMM (4-12)
[2020-03-21 13:15] LABS: Alanine Aminotransferase 31 U/L (13-56); Albumin 2.2 G/DL (3.4-5.0); Alkaline Phosphatase 160 U/L (45-117); Aspartate Amino Transferase 37 U/L (0-37); Bilirubin,Total < 0.39 MG/DL (0.2-1.0); Blood Urea Nitrogen 18 MG/DL (7-18); Calcium 8.7 MG/DL (8.5-10.1); Carbon Dioxide 33 MMOL/L (21-32); Estimated Glom Filtration Rate 13 ML/MIN; Glucose 87 MG/DL (74-106); Osmolality,Calculated 279.4 MOS/KG (273-304); Potassium 3.1 MMOL/L (3.5-5.1); Sodium 140 MMOL/L (136-145); Total Protein 6.1 G/DL (6.4-8.3)
[2020-03-21 13:19] LABS: Bilirubin,Urine Small mg/dL (Negative); Blood, Urine Large mg/dL (Negative); Glucose,Urine (UA) Negative (Negative); Hyaline Casts,Urine 13 /LPF (0-3); Ketones,Urine 5 mg/dL (Negative); Mucus,Urine Occasional /LPF (Occasional); Nitrite,Urine Negative (Negative); Protein,Urine >=500 MG/DL; RBC,Urine 128 /HPF (0-4); Squamous Epithelial Cell,Urine Occasional /HPF (0-10); Urine Appearance CLOUDY (Clear); Urine Color Amber (Yellow); Urine Specific Gravity 1.025 (1.001-1.035); Urine Urobilinogen < 2.0 EU/DL (0.2-1.0); WBC,Urine 8 /HPF (0-6)
[2020-03-21] MEDS ORDERED: FUROSEMIDE 40 MG/4 ML VIAL IV STA (13:53)
[2020-03-21] MEDS ORDERED: POTASSIUM CHLORIDE 20 MEQ TABLET PO STA ×2 (13:53→14:02)
[2020-03-21] MEDS ORDERED: ACETAMINOPHEN 500 MG TABLET PO STA (14:33)
[2020-03-21] MEDS ORDERED: GLUCAGON 1 MG VIAL IM PRN (15:28)
[2020-03-21] MEDS ORDERED: ONDANSETRON 4 MG/2 ML VIAL IV PRN (15:28)
[2020-03-21] MEDS ORDERED: DEXTROSE 50% 25 GM/50 ML VIAL IV PRN (15:28)
[2020-03-21] MEDS ORDERED: MAGNESIUM SULF RIDER 2 GM in PREMIX 1 EACH IV PRN (15:36)
[2020-03-21] MEDS ORDERED: MAGNESIUM SULF RIDER 4 GM in PREMIX 1 EACH IV PRN (15:36)
[2020-03-21] MEDS ORDERED: POTASSIUM CHLORIDE 20 MEQ TABLET PO PRN (15:36)
[2020-03-21] MEDS: FUROSEMIDE 40 MG/4 ML VIAL IV SCH (17:46)
[2020-03-21] MEDS: HEPARIN 5,000 UNIT/1 ML VIAL SUBCUT SCH (20:21)
[2020-03-21] MEDS: MORPHINE 4 MG/1 ML VIAL IV PRN (20:24)
[2020-03-21] MEDS: INSULIN LISPRO 100 UNIT/ML SUBCUT SCH (20:28)
[2020-03-22] MEDS: HEPARIN 5,000 UNIT/1 ML VIAL SUBCUT SCH ×3 (04:20→22:37)
[2020-03-22 06:02] LABS: Basophils % 0.5 % (0.0-0.8); Eosinophils # 0.1 10*3/uL (0.0-0.87); Hematocrit 26.3 VOL% (35.7-47.0); Hemoglobin 8.6 GM/DL (12.0-16.0); Immature Granulocytes % 0.5 %; Immature Granulocytes Absolute 0.02 #; Lymphocytes # 0.5 10*3/uL (1.4-4.0); Lymphocytes % 11.8 % (21.3-54.2); Mean Corpuscular HGB Conc 32.7 GM/DL (32-36); Mean Platelet Volume 9.3 FL (9.6-12.0); Monocytes % 7.5 % (1.7-12.7); Neutrophils % 76.7 % (38.7-73.9); Platelet Count 268 T/CUMM (130-400); Red Blood Count 2.74 MC/CUMM (3.8-5.5); Red Cell Distribution Width 14.8 % (9.3-17.3)
[2020-03-22 06:17] LABS: Albumin 2.4 G/DL (3.4-5.0); Bilirubin,Total 0.6 MG/DL (0.2-1.0); Calcium 9.5 MG/DL (8.5-10.1); Osmolality,Calculated 277.7 MOS/KG (273-304); Potassium 3.6 MMOL/L (3.5-5.1); Thyroid Stimulating Hormone 1.58 uIU/ml (0.358-3.74); Total Protein 6.4 G/DL (6.4-8.3)
[2020-03-22] MEDS: INSULIN LISPRO 100 UNIT/ML SUBCUT SCH ×4 (08:56→22:38)
[2020-03-22] MEDS: FUROSEMIDE 40 MG/4 ML VIAL IV SCH (10:32)
[2020-03-22] MEDS: ACETAMINOPHEN 325 MG TABLET PO PRN (12:16)
[2020-03-22 12:37] LABS: Hepatitis B Core IgM Quant 0.09 Index; Hepatitis B Surface Ag Quant < 0.10 Index; Hepatitis B Surface Ag Result Negative (Negative); Hepatitis C Virus Ab Quant < 0.02 Index; Hepatitis C Virus Ab Result Negative (Negative)
[2020-03-22] MEDS ORDERED: HEPARIN 10,000 UNIT/10 ML VIAL IV SCH (13:00)
[2020-03-22] MEDS: carBAMazepine 200 MG TABLET PO SCH (16:14)
[2020-03-22] MEDS: DILTIAZEM CD 180 MG CAPSULE PO SCH (16:16)
[2020-03-22] MEDS: METOPROLOL SUCCINATE XL 100 MG TABLET PO SCH (22:38)
[2020-03-22] MEDS: DULoxetine 30 MG CAPSULE PO SCH (22:38)
[2020-03-23 05:28] LABS: Basophils % 0.8 % (0.0-0.8); Eosinophils # 0.2 10*3/uL (0.0-0.87); Eosinophils % 4.5 % (0.00-10.9); Hematocrit 25.2 VOL% (35.7-47.0); Hemoglobin 8.3 GM/DL (12.0-16.0); Immature Granulocytes % 0.3 %; Immature Granulocytes Absolute 0.01 #; Lymphocytes # 0.5 10*3/uL (1.4-4.0); Lymphocytes % 14.4 % (21.3-54.2); Mean Corpuscular HGB Conc 32.9 GM/DL (32-36); Mean Corpuscular Volume 95.5 FL (87-102); Mean Platelet Volume 9.3 FL (9.6-12.0); Monocytes % 11.9 % (1.7-12.7); Neutrophils % 68.1 % (38.7-73.9); Platelet Count 220 T/CUMM (130-400); Red Blood Count 2.64 MC/CUMM (3.8-5.5); Red Cell Distribution Width 14.4 % (9.3-17.3); White Blood Count 3.5 T/CUMM (4-12)
[2020-03-23] MEDS: HEPARIN 5,000 UNIT/1 ML VIAL SUBCUT SCH ×3 (05:42→21:04)
[2020-03-23 05:58] LABS: Bilirubin,Total 0.5 MG/DL (0.2-1.0); Calcium 8.6 MG/DL (8.5-10.1); Osmolality,Calculated 284.4 MOS/KG (273-304); Potassium 3.7 MMOL/L (3.5-5.1); Total Protein 5.8 G/DL (6.4-8.3)
[2020-03-23] MEDS: INSULIN LISPRO 100 UNIT/ML SUBCUT SCH ×4 (08:50→21:05)
[2020-03-23] MEDS: DULoxetine 30 MG CAPSULE PO SCH ×2 (09:39→21:04)
[2020-03-23] MEDS: carBAMazepine 200 MG TABLET PO SCH (09:39)
[2020-03-23] MEDS: LORATADINE 10 MG TABLET PO SCH (09:39)
[2020-03-23] MEDS: METOPROLOL SUCCINATE XL 100 MG TABLET PO SCH ×2 (09:40→21:04)
[2020-03-23] MEDS: MONTELUKAST 10 MG TABLET PO SCH (09:40)
[2020-03-23] MEDS: DILTIAZEM CD 180 MG CAPSULE PO SCH (09:40)
[2020-03-23] MEDS: cloNIDine 0.3 MG/24 HR PATCH TRANSDERM SCH (13:29)
[2020-03-24] MEDS: HEPARIN 5,000 UNIT/1 ML VIAL SUBCUT SCH ×3 (05:48→20:58)
[2020-03-24 06:13] LABS: Basophils % 0.6 % (0.0-0.8); Eosinophils # 0.2 10*3/uL (0.0-0.87); Eosinophils % 5.1 % (0.00-10.9); Hemoglobin 8.3 GM/DL (12.0-16.0); Immature Granulocytes % 0.3 %; Immature Granulocytes Absolute 0.01 #; Lymphocytes # 0.5 10*3/uL (1.4-4.0); Lymphocytes % 14.5 % (21.3-54.2); Mean Corpuscular HGB Conc 33.2 GM/DL (32-36); Mean Corpuscular Volume 95.4 FL (87-102); Mean Platelet Volume 9.6 FL (9.6-12.0); Monocytes % 10.3 % (1.7-12.7); Neutrophils % 69.2 % (38.7-73.9); Platelet Count 192 T/CUMM (130-400); Red Blood Count 2.62 MC/CUMM (3.8-5.5); Red Cell Distribution Width 14.2 % (9.3-17.3); White Blood Count 3.1 T/CUMM (4-12)
[2020-03-24 06:43] LABS: Albumin 2.1 G/DL (3.4-5.0); Bilirubin,Total 0.9 MG/DL (0.2-1.0); Calcium 9.2 MG/DL (8.5-10.1); Osmolality,Calculated 280.8 MOS/KG (273-304); Total Protein 5.9 G/DL (6.4-8.3)
[2020-03-24] MEDS: INSULIN LISPRO 100 UNIT/ML SUBCUT SCH ×4 (09:33→20:57)
[2020-03-24] MEDS: MONTELUKAST 10 MG TABLET PO SCH (09:35)
[2020-03-24] MEDS: LORATADINE 10 MG TABLET PO SCH (09:35)
[2020-03-24] MEDS: DILTIAZEM CD 180 MG CAPSULE PO SCH (09:35)
[2020-03-24] MEDS: DULoxetine 30 MG CAPSULE PO SCH ×2 (09:35→20:56)
[2020-03-24] MEDS: METOPROLOL SUCCINATE XL 100 MG TABLET PO SCH ×2 (09:36→20:57)
[2020-03-24] MEDS: carBAMazepine 200 MG TABLET PO SCH (09:39)
[2020-03-24] MEDS: MORPHINE 4 MG/1 ML VIAL IV PRN (23:50)
[2020-03-25] MEDS: HEPARIN 5,000 UNIT/1 ML VIAL SUBCUT SCH ×3 (04:18→20:31)
[2020-03-25] MEDS: INSULIN LISPRO 100 UNIT/ML SUBCUT SCH ×4 (08:12→20:30)
[2020-03-25] MEDS: carBAMazepine 200 MG TABLET PO SCH (12:18)
[2020-03-25] MEDS: DULoxetine 30 MG CAPSULE PO SCH ×2 (12:18→20:29)
[2020-03-25] MEDS: METOPROLOL SUCCINATE XL 100 MG TABLET PO SCH ×2 (12:19→20:29)
[2020-03-25] MEDS: LORATADINE 10 MG TABLET PO SCH (12:19)
[2020-03-25] MEDS: MONTELUKAST 10 MG TABLET PO SCH (12:19)
[2020-03-25] MEDS: DILTIAZEM CD 180 MG CAPSULE PO SCH (12:19)
[2020-03-25] MEDS: MORPHINE 4 MG/1 ML VIAL IV PRN (22:43)
[2020-03-26] MEDS: HEPARIN 5,000 UNIT/1 ML VIAL SUBCUT SCH ×3 (04:25→20:30)
[2020-03-26 05:46] LABS: Osmolality,Calculated 273.5 MOS/KG (273-304); Potassium 5.1 MMOL/L (3.5-5.1)
[2020-03-26] MEDS: MORPHINE 4 MG/1 ML VIAL IV PRN (06:13)
[2020-03-26 06:32] LABS: Basophils % 0.8 % (0.0-0.8); Eosinophils # 0.2 10*3/uL (0.0-0.87); Eosinophils % 3.8 % (0.00-10.9); Hemoglobin 9.2 GM/DL (12.0-16.0); Immature Granulocytes % 0.5 %; Immature Granulocytes Absolute 0.02 #; Lymphocytes # 0.4 10*3/uL (1.4-4.0); Lymphocytes % 10.6 % (21.3-54.2); Mean Corpuscular HGB Conc 34.1 GM/DL (32-36); Mean Corpuscular Volume 93.4 FL (87-102); Mean Platelet Volume 8.9 FL (9.6-12.0); Monocytes % 11.1 % (1.7-12.7); Neutrophils % 73.2 % (38.7-73.9); Platelet Count 193 T/CUMM (130-400); Red Blood Count 2.89 MC/CUMM (3.8-5.5); Red Cell Distribution Width 13.6 % (9.3-17.3)
[2020-03-26] MEDS: INSULIN LISPRO 100 UNIT/ML SUBCUT SCH ×4 (08:20→20:30)
[2020-03-26] MEDS: METOPROLOL SUCCINATE XL 100 MG TABLET PO SCH ×2 (12:38→20:30)
[2020-03-26] MEDS: MONTELUKAST 10 MG TABLET PO SCH (12:38)
[2020-03-26] MEDS: LORATADINE 10 MG TABLET PO SCH (12:38)
[2020-03-26] MEDS: DULoxetine 30 MG CAPSULE PO SCH ×2 (12:38→20:30)
[2020-03-26] MEDS: carBAMazepine 200 MG TABLET PO SCH (12:39)
[2020-03-26] MEDS: ATORVASTATIN 40 MG TABLET PO SCH (12:39)
[2020-03-26] MEDS: DILTIAZEM CD 180 MG CAPSULE PO SCH (12:39)
[2020-03-27] MEDS: HEPARIN 5,000 UNIT/1 ML VIAL SUBCUT SCH ×3 (05:39→21:08)
[2020-03-27] MEDS ORDERED: cloNIDine 0.3 MG/24 HR PATCH TRANSDERM SCH (09:00)
[2020-03-27] MEDS: INSULIN LISPRO 100 UNIT/ML SUBCUT SCH ×4 (09:29→21:08)
[2020-03-27] MEDS: LOSARTAN 25 MG TABLET PO SCH (09:38)
[2020-03-27] MEDS: carBAMazepine 200 MG TABLET PO SCH (09:38)
[2020-03-27] MEDS: DILTIAZEM CD 180 MG CAPSULE PO SCH (09:38)
[2020-03-27] MEDS: ATORVASTATIN 40 MG TABLET PO SCH (09:39)
[2020-03-27] MEDS: DULoxetine 30 MG CAPSULE PO SCH ×2 (09:39→21:08)
[2020-03-27] MEDS: LORATADINE 10 MG TABLET PO SCH (09:39)
[2020-03-27] MEDS: MONTELUKAST 10 MG TABLET PO SCH (09:43)
[2020-03-27] MEDS: METOPROLOL SUCCINATE XL 100 MG TABLET PO SCH ×2 (12:41→21:08)
[2020-03-28] MEDS: MORPHINE 4 MG/1 ML VIAL IV PRN (05:06)
[2020-03-28] MEDS: HEPARIN 5,000 UNIT/1 ML VIAL SUBCUT SCH ×3 (05:06→20:57)
[2020-03-28 07:44] LABS: Basophils % 0.9 % (0.0-0.8); Eosinophils # 0.1 10*3/uL (0.0-0.87); Eosinophils % 3.1 % (0.00-10.9); Immature Granulocytes % 0.6 %; Immature Granulocytes Absolute 0.02 #; Lymphocytes # 0.4 10*3/uL (1.4-4.0); Lymphocytes % 13.6 % (21.3-54.2); Mean Corpuscular HGB Conc 33.3 GM/DL (32-36); Mean Corpuscular Volume 92.8 FL (87-102); Mean Platelet Volume 10.7 FL (9.6-12.0); Monocytes % 11.8 % (1.7-12.7); Platelet Count 195 T/CUMM (130-400); Red Blood Count 2.91 MC/CUMM (3.8-5.5); Red Cell Distribution Width 13.2 % (9.3-17.3); White Blood Count 3.2 T/CUMM (4-12)
[2020-03-28 08:00] LABS: Calcium 8.9 MG/DL (8.5-10.1); Osmolality,Calculated 278.4 MOS/KG (273-304); Potassium 4.2 MMOL/L (3.5-5.1)
[2020-03-28] MEDS: INSULIN LISPRO 100 UNIT/ML SUBCUT SCH ×4 (09:07→20:57)
[2020-03-28] MEDS ORDERED: MAGNESIUM CITRATE 300 ML BOTTLE PO ONE (12:22)
[2020-03-28] MEDS: carBAMazepine 200 MG TABLET PO SCH (12:37)
[2020-03-28] MEDS: LOSARTAN 25 MG TABLET PO SCH (12:37)
[2020-03-28] MEDS: METOPROLOL SUCCINATE XL 100 MG TABLET PO SCH ×2 (12:38→20:57)
[2020-03-28] MEDS: DULoxetine 30 MG CAPSULE PO SCH ×2 (12:38→20:57)
[2020-03-28] MEDS: LORATADINE 10 MG TABLET PO SCH (12:38)
[2020-03-28] MEDS: ATORVASTATIN 40 MG TABLET PO SCH (12:38)
[2020-03-28] MEDS: DILTIAZEM CD 180 MG CAPSULE PO SCH (12:38)
[2020-03-28] MEDS: MONTELUKAST 10 MG TABLET PO SCH (12:38)
[2020-03-29] MEDS: HEPARIN 5,000 UNIT/1 ML VIAL SUBCUT SCH ×3 (04:43→21:09)
[2020-03-29] MEDS: DILTIAZEM CD 180 MG CAPSULE PO SCH (09:22)
[2020-03-29] MEDS: carBAMazepine 200 MG TABLET PO SCH (09:23)
[2020-03-29] MEDS: LORATADINE 10 MG TABLET PO SCH (09:23)
[2020-03-29] MEDS: MONTELUKAST 10 MG TABLET PO SCH (09:23)
[2020-03-29] MEDS: METOPROLOL SUCCINATE XL 100 MG TABLET PO SCH ×2 (09:23→21:09)
[2020-03-29] MEDS: DULoxetine 30 MG CAPSULE PO SCH ×2 (09:23→21:09)
[2020-03-29] MEDS: INSULIN LISPRO 100 UNIT/ML SUBCUT SCH ×4 (09:23→22:47)
[2020-03-29] MEDS: LOSARTAN 25 MG TABLET PO SCH (09:23)
[2020-03-29] MEDS: ATORVASTATIN 40 MG TABLET PO SCH (09:23)
[2020-03-29] MEDS: FLUTICASONE 50 MCG NASAL SPRAY 16 GM BOTTLE BOTH NARES SCH (13:06)
[2020-03-30] MEDS: HEPARIN 5,000 UNIT/1 ML VIAL SUBCUT SCH ×3 (04:43→20:44)
[2020-03-30 06:49] LABS: Basophils % 0.9 % (0.0-0.8); Eosinophils # 0.1 10*3/uL (0.0-0.87); Eosinophils % 4.1 % (0.00-10.9); Hematocrit 27.2 VOL% (35.7-47.0); Hemoglobin 8.9 GM/DL (12.0-16.0); Immature Granulocytes % 0.6 %; Immature Granulocytes Absolute 0.02 #; Lymphocytes # 0.4 10*3/uL (1.4-4.0); Lymphocytes % 11.9 % (21.3-54.2); Mean Corpuscular HGB Conc 32.7 GM/DL (32-36); Mean Corpuscular Volume 92.2 FL (87-102); Mean Platelet Volume 9.3 FL (9.6-12.0); Monocytes % 12.9 % (1.7-12.7); Neutrophils % 69.6 % (38.7-73.9); Platelet Count 251 T/CUMM (130-400); Red Blood Count 2.95 MC/CUMM (3.8-5.5); Red Cell Distribution Width 13.1 % (9.3-17.3); White Blood Count 3.2 T/CUMM (4-12)
[2020-03-30 07:09] LABS: Osmolality,Calculated 277.5 MOS/KG (273-304); Potassium 4.4 MMOL/L (3.5-5.1)
[2020-03-30] MEDS: DULoxetine 30 MG CAPSULE PO SCH ×2 (09:31→20:44)
[2020-03-30] MEDS: carBAMazepine 200 MG TABLET PO SCH (09:31)
[2020-03-30] MEDS: LOSARTAN 25 MG TABLET PO SCH (09:31)
[2020-03-30] MEDS: DILTIAZEM CD 180 MG CAPSULE PO SCH (09:31)
[2020-03-30] MEDS: LORATADINE 10 MG TABLET PO SCH (09:31)
[2020-03-30] MEDS: ATORVASTATIN 40 MG TABLET PO SCH (09:31)
[2020-03-30] MEDS: FLUTICASONE 50 MCG NASAL SPRAY 16 GM BOTTLE BOTH NARES SCH (09:32)
[2020-03-30] MEDS: INSULIN LISPRO 100 UNIT/ML SUBCUT SCH ×4 (09:32→20:44)
[2020-03-30] MEDS: MONTELUKAST 10 MG TABLET PO SCH (09:32)
[2020-03-30] MEDS: METOPROLOL SUCCINATE XL 100 MG TABLET PO SCH ×2 (09:32→20:44)
[2020-03-30] MEDS: cloNIDine 0.3 MG/24 HR PATCH TRANSDERM SCH (11:52)
[2020-03-30] MEDS ORDERED: BISACODYL 5 MG TABLET PO PRN (21:35)
[2020-03-31] MEDS: ACETAMINOPHEN 325 MG TABLET PO PRN ×3 (05:47→20:34)
[2020-03-31] MEDS: HEPARIN 5,000 UNIT/1 ML VIAL SUBCUT SCH ×3 (05:47→20:35)
[2020-03-31] MEDS: INSULIN LISPRO 100 UNIT/ML SUBCUT SCH ×4 (09:26→20:35)
[2020-03-31] MEDS: LORATADINE 10 MG TABLET PO SCH (12:38)
[2020-03-31] MEDS: MONTELUKAST 10 MG TABLET PO SCH (12:39)
[2020-03-31] MEDS: METOPROLOL SUCCINATE XL 100 MG TABLET PO SCH ×2 (12:39→20:34)
[2020-03-31] MEDS: DILTIAZEM CD 180 MG CAPSULE PO SCH (12:39)
[2020-03-31] MEDS: DULoxetine 30 MG CAPSULE PO SCH ×2 (12:40→20:34)
[2020-03-31] MEDS: ATORVASTATIN 40 MG TABLET PO SCH (12:40)
[2020-03-31] MEDS: carBAMazepine 200 MG TABLET PO SCH (12:40)
[2020-03-31] MEDS: LOSARTAN 25 MG TABLET PO SCH (12:42)
[2020-03-31] MEDS: FLUTICASONE 50 MCG NASAL SPRAY 16 GM BOTTLE BOTH NARES SCH (12:42)
[2020-04-01] MEDS: ACETAMINOPHEN 325 MG TABLET PO PRN ×3 (00:49→21:24)
[2020-04-01] MEDS: ZALEPLON 5 MG CAPSULE PO PRN ×2 (01:45→21:24)
[2020-04-01] MEDS: HEPARIN 5,000 UNIT/1 ML VIAL SUBCUT SCH ×3 (04:38→21:25)
[2020-04-01] MEDS: INSULIN LISPRO 100 UNIT/ML SUBCUT SCH ×4 (07:57→21:25)
[2020-04-01 08:06] LABS: Basophils % 0.6 % (0.0-0.8); Eosinophils # 0.1 10*3/uL (0.0-0.87); Hematocrit 28.7 VOL% (35.7-47.0); Hemoglobin 9.6 GM/DL (12.0-16.0); Immature Granulocytes % 1.2 %; Immature Granulocytes Absolute 0.06 #; Lymphocytes # 0.5 10*3/uL (1.4-4.0); Lymphocytes % 9.1 % (21.3-54.2); Mean Corpuscular HGB Conc 33.4 GM/DL (32-36); Mean Corpuscular Volume 90.5 FL (87-102); Mean Platelet Volume 9.8 FL (9.6-12.0); Monocytes % 9.8 % (1.7-12.7); Neutrophils % 77.3 % (38.7-73.9); Platelet Count 264 T/CUMM (130-400); Red Blood Count 3.17 MC/CUMM (3.8-5.5); Red Cell Distribution Width 12.9 % (9.3-17.3); White Blood Count 4.9 T/CUMM (4-12)
[2020-04-01 08:22] LABS: Calcium 8.9 MG/DL (8.5-10.1); Osmolality,Calculated 276.5 MOS/KG (273-304); Potassium 4.5 MMOL/L (3.5-5.1)
[2020-04-01] MEDS: DULoxetine 30 MG CAPSULE PO SCH ×2 (08:32→21:25)
[2020-04-01] MEDS: DILTIAZEM CD 180 MG CAPSULE PO SCH (08:32)
[2020-04-01] MEDS: MONTELUKAST 10 MG TABLET PO SCH (08:33)
[2020-04-01] MEDS: METOPROLOL SUCCINATE XL 100 MG TABLET PO SCH ×2 (08:33→21:25)
[2020-04-01] MEDS: ATORVASTATIN 40 MG TABLET PO SCH (08:33)
[2020-04-01] MEDS: LOSARTAN 25 MG TABLET PO SCH (08:33)
[2020-04-01] MEDS: FLUTICASONE 50 MCG NASAL SPRAY 16 GM BOTTLE BOTH NARES SCH (08:33)
[2020-04-01] MEDS: carBAMazepine 200 MG TABLET PO SCH (08:33)
[2020-04-01] MEDS: LORATADINE 10 MG TABLET PO SCH (08:33)
[2020-04-01] MEDS ORDERED: HEPARIN 5,000 UNIT/1 ML VIAL SUBCUT SCH (16:00)
[2020-04-02] MEDS: ACETAMINOPHEN 325 MG TABLET PO PRN ×2 (06:24→16:11)
[2020-04-02] MEDS: INSULIN LISPRO 100 UNIT/ML SUBCUT SCH ×4 (08:11→21:09)
[2020-04-02] MEDS: HEPARIN 5,000 UNIT/1 ML VIAL SUBCUT SCH ×2 (10:13→21:03)
[2020-04-02] MEDS: METOPROLOL SUCCINATE XL 100 MG TABLET PO SCH ×2 (10:14→21:03)
[2020-04-02] MEDS: DULoxetine 30 MG CAPSULE PO SCH ×2 (10:14→21:03)
[2020-04-02] MEDS: DILTIAZEM CD 180 MG CAPSULE PO SCH (13:25)
[2020-04-02] MEDS: carBAMazepine 200 MG TABLET PO SCH (13:26)
[2020-04-02] MEDS: MONTELUKAST 10 MG TABLET PO SCH (13:26)
[2020-04-02] MEDS: LORATADINE 10 MG TABLET PO SCH (13:26)
[2020-04-02] MEDS: ATORVASTATIN 40 MG TABLET PO SCH (13:27)
[2020-04-02] MEDS: LOSARTAN 25 MG TABLET PO SCH (13:27)
[2020-04-02] MEDS: FLUTICASONE 50 MCG NASAL SPRAY 16 GM BOTTLE BOTH NARES SCH (13:27)
[2020-04-03] MEDS: hydrALAZINE 20 MG/1 ML VIAL IV PRN (02:30)
[2020-04-03] MEDS: ACETAMINOPHEN 325 MG TABLET PO PRN ×3 (03:34→18:48)
[2020-04-03] MEDS: METOPROLOL SUCCINATE XL 100 MG TABLET PO SCH ×2 (10:18→20:47)
[2020-04-03] MEDS: LOSARTAN 25 MG TABLET PO SCH (10:18)
[2020-04-03] MEDS: carBAMazepine 200 MG TABLET PO SCH (10:18)
[2020-04-03] MEDS: MONTELUKAST 10 MG TABLET PO SCH (10:18)
[2020-04-03] MEDS: LORATADINE 10 MG TABLET PO SCH (10:18)
[2020-04-03] MEDS: ATORVASTATIN 40 MG TABLET PO SCH (10:18)
[2020-04-03] MEDS: DILTIAZEM CD 180 MG CAPSULE PO SCH (10:18)
[2020-04-03] MEDS: DULoxetine 30 MG CAPSULE PO SCH ×2 (10:18→20:47)
[2020-04-03] MEDS: INSULIN LISPRO 100 UNIT/ML SUBCUT SCH ×4 (10:19→20:48)
[2020-04-03] MEDS: FLUTICASONE 50 MCG NASAL SPRAY 16 GM BOTTLE BOTH NARES SCH (10:19)
[2020-04-03] MEDS: HEPARIN 5,000 UNIT/1 ML VIAL SUBCUT SCH ×2 (10:19→20:47)
[2020-04-03] MEDS: LOSARTAN 50 MG TABLET PO SCH (17:46)
[2020-04-04] MEDS: ACETAMINOPHEN 325 MG TABLET PO PRN ×3 (03:59→21:05)
[2020-04-04] MEDS: hydrALAZINE 20 MG/1 ML VIAL IV PRN (04:54)
[2020-04-04 05:49] LABS: Basophils % 0.5 % (0.0-0.8); Eosinophils # 0.1 10*3/uL (0.0-0.87); Eosinophils % 2.5 % (0.00-10.9); Hematocrit 27.8 VOL% (35.7-47.0); Hemoglobin 9.2 GM/DL (12.0-16.0); Immature Granulocytes Absolute 0.04 #; Lymphocytes # 0.5 10*3/uL (1.4-4.0); Lymphocytes % 11.4 % (21.3-54.2); Mean Corpuscular HGB Conc 33.1 GM/DL (32-36); Mean Corpuscular Volume 92.7 FL (87-102); Mean Platelet Volume 9.4 FL (9.6-12.0); Monocytes % 7.3 % (1.7-12.7); Neutrophils % 77.3 % (38.7-73.9); Platelet Count 307 T/CUMM (130-400); Red Cell Distribution Width 13.2 % (9.3-17.3)
[2020-04-04 06:03] LABS: Osmolality,Calculated 284.2 MOS/KG (273-304); Potassium 4.5 MMOL/L (3.5-5.1)
[2020-04-04 06:15] LABS: Eosinophils 5 % (0-10); Lymphocytes 11 % (20-55); Segmented Neutrophils 79 % (50-85); Total Cells Counted 100
[2020-04-04 06:16] LABS: Microcytosis Slight; Platelet Estimate Normal
[2020-04-04] MEDS: INSULIN LISPRO 100 UNIT/ML SUBCUT SCH ×4 (07:50→21:03)
[2020-04-04] MEDS: HEPARIN 5,000 UNIT/1 ML VIAL SUBCUT SCH ×2 (11:59→21:05)
[2020-04-04] MEDS: DILTIAZEM CD 180 MG CAPSULE PO SCH (12:03)
[2020-04-04] MEDS: ATORVASTATIN 40 MG TABLET PO SCH (12:03)
[2020-04-04] MEDS: LOSARTAN 50 MG TABLET PO SCH (12:03)
[2020-04-04] MEDS: carBAMazepine 200 MG TABLET PO SCH (12:04)
[2020-04-04] MEDS: MONTELUKAST 10 MG TABLET PO SCH (12:04)
[2020-04-04] MEDS: METOPROLOL SUCCINATE XL 100 MG TABLET PO SCH ×2 (12:04→21:04)
[2020-04-04] MEDS: LORATADINE 10 MG TABLET PO SCH (12:04)
[2020-04-04] MEDS: DULoxetine 30 MG CAPSULE PO SCH ×2 (12:04→21:05)
[2020-04-04] MEDS: FLUTICASONE 50 MCG NASAL SPRAY 16 GM BOTTLE BOTH NARES SCH (12:04)
[2020-04-04] MEDS ORDERED: FERROUS SULFATE PO SCH (21:00)
[2020-04-04] MEDS: PANTOPRAZOLE 40 MG TABLET PO SCH (21:04)
[2020-04-04] MEDS: minoxidiL 2.5 MG TABLET PO SCH (21:05)
[2020-04-05] MEDS: ZALEPLON 5 MG CAPSULE PO PRN (01:14)
[2020-04-05 06:49] LABS: Eosinophils # 0.1 10*3/uL (0.0-0.87); Eosinophils % 2.3 % (0.00-10.9); Hematocrit 24.1 VOL% (35.7-47.0); Immature Granulocytes Absolute 0.03 #; Lymphocytes # 0.5 10*3/uL (1.4-4.0); Lymphocytes % 15.5 % (21.3-54.2); Mean Corpuscular HGB Conc 33.2 GM/DL (32-36); Mean Platelet Volume 9.8 FL (9.6-12.0); Monocytes % 5.8 % (1.7-12.7); Neutrophils % 74.4 % (38.7-73.9); Platelet Count 234 T/CUMM (130-400); Red Blood Count 2.62 MC/CUMM (3.8-5.5); Red Cell Distribution Width 13.1 % (9.3-17.3); White Blood Count 3.1 T/CUMM (4-12)
[2020-04-05 07:17] LABS: Calcium 8.7 MG/DL (8.5-10.1); Osmolality,Calculated 275.4 MOS/KG (273-304); Potassium 4.2 MMOL/L (3.5-5.1)
[2020-04-05] MEDS: INSULIN LISPRO 100 UNIT/ML SUBCUT SCH ×4 (08:31→21:04)
[2020-04-05] MEDS: METOPROLOL SUCCINATE XL 100 MG TABLET PO SCH ×2 (09:28→20:53)
[2020-04-05] MEDS: carBAMazepine 200 MG TABLET PO SCH (09:28)
[2020-04-05] MEDS: ASPIRIN CHEW 81 MG TABLET PO SCH (09:28)
[2020-04-05] MEDS: ISOSORBIDE MONONITRATE 30 MG TABLET PO SCH (09:28)
[2020-04-05] MEDS: LORATADINE 10 MG TABLET PO SCH (09:28)
[2020-04-05] MEDS: ATORVASTATIN 40 MG TABLET PO SCH (09:28)
[2020-04-05] MEDS: PANTOPRAZOLE 40 MG TABLET PO SCH ×2 (09:29→20:53)
[2020-04-05] MEDS: LOSARTAN 50 MG TABLET PO SCH (09:29)
[2020-04-05] MEDS: DILTIAZEM CD 180 MG CAPSULE PO SCH (09:29)
[2020-04-05] MEDS: DULoxetine 30 MG CAPSULE PO SCH ×2 (09:29→20:53)
[2020-04-05] MEDS: minoxidiL 2.5 MG TABLET PO SCH ×2 (09:29→20:53)
[2020-04-05] MEDS: FLUTICASONE 50 MCG NASAL SPRAY 16 GM BOTTLE BOTH NARES SCH ×2 (09:30→10:10)
[2020-04-05] MEDS: MULTIVITAMIN (CENTRUM) TABLET PO SCH (09:31)
[2020-04-05] MEDS: ACETAMINOPHEN 325 MG TABLET PO PRN ×2 (10:10→14:30)
[2020-04-05] MEDS: MONTELUKAST 10 MG TABLET PO SCH (10:11)
[2020-04-05] MEDS: HEPARIN 5,000 UNIT/1 ML VIAL SUBCUT SCH ×2 (10:11→20:53)
[2020-04-06 05:12] LABS: Basophils % 0.9 % (0.0-0.8); Eosinophils # 0.1 10*3/uL (0.0-0.87); Eosinophils % 1.7 % (0.00-10.9); Hematocrit 24.6 VOL% (35.7-47.0); Hemoglobin 8.2 GM/DL (12.0-16.0); Immature Granulocytes % 1.2 %; Immature Granulocytes Absolute 0.04 #; Lymphocytes # 0.3 10*3/uL (1.4-4.0); Lymphocytes % 9.5 % (21.3-54.2); Mean Corpuscular HGB Conc 33.3 GM/DL (32-36); Mean Corpuscular Volume 91.8 FL (87-102); Mean Platelet Volume 9.3 FL (9.6-12.0); Monocytes % 8.4 % (1.7-12.7); Neutrophils % 78.3 % (38.7-73.9); Platelet Count 255 T/CUMM (130-400); Red Blood Count 2.68 MC/CUMM (3.8-5.5); White Blood Count 3.5 T/CUMM (4-12)
[2020-04-06 05:44] LABS: Calcium 8.8 MG/DL (8.5-10.1); Osmolality,Calculated 277.7 MOS/KG (273-304); Potassium 4.6 MMOL/L (3.5-5.1)
[2020-04-06] MEDS: INSULIN LISPRO 100 UNIT/ML SUBCUT SCH ×4 (07:48→20:34)
[2020-04-06] MEDS: PANTOPRAZOLE 40 MG TABLET PO SCH ×2 (08:20→20:29)
[2020-04-06] MEDS: DILTIAZEM CD 180 MG CAPSULE PO SCH (08:20)
[2020-04-06] MEDS: LOSARTAN 50 MG TABLET PO SCH (08:21)
[2020-04-06] MEDS: MULTIVITAMIN (CENTRUM) TABLET PO SCH (08:21)
[2020-04-06] MEDS: ISOSORBIDE MONONITRATE 30 MG TABLET PO SCH (08:21)
[2020-04-06] MEDS: METOPROLOL SUCCINATE XL 100 MG TABLET PO SCH ×2 (08:21→20:29)
[2020-04-06] MEDS: MONTELUKAST 10 MG TABLET PO SCH (08:21)
[2020-04-06] MEDS: ASPIRIN CHEW 81 MG TABLET PO SCH (08:21)
[2020-04-06] MEDS: carBAMazepine 200 MG TABLET PO SCH (08:21)
[2020-04-06] MEDS: ATORVASTATIN 40 MG TABLET PO SCH (08:21)
[2020-04-06] MEDS: LORATADINE 10 MG TABLET PO SCH (08:21)
[2020-04-06] MEDS: DULoxetine 30 MG CAPSULE PO SCH ×2 (08:21→20:29)
[2020-04-06] MEDS: minoxidiL 2.5 MG TABLET PO SCH ×2 (08:21→20:29)
[2020-04-06] MEDS: HEPARIN 5,000 UNIT/1 ML VIAL SUBCUT SCH ×2 (08:22→20:29)
[2020-04-06] MEDS: FLUTICASONE 50 MCG NASAL SPRAY 16 GM BOTTLE BOTH NARES SCH (08:22)
[2020-04-06] MEDS: ACETAMINOPHEN 325 MG TABLET PO PRN ×2 (11:04→15:29)
[2020-04-06] MEDS: cloNIDine 0.3 MG/24 HR PATCH TRANSDERM SCH (11:59)
[2020-04-06] MEDS: ZALEPLON 5 MG CAPSULE PO PRN (22:25)
[2020-04-07] MEDS: ACETAMINOPHEN 325 MG TABLET PO PRN ×4 (06:08→23:12)
[2020-04-07 07:43] LABS: Eosinophils # 0.1 10*3/uL (0.0-0.87); Eosinophils % 2.4 % (0.00-10.9); Hematocrit 24.1 VOL% (35.7-47.0); Hemoglobin 8.1 GM/DL (12.0-16.0); Immature Granulocytes % 0.7 %; Immature Granulocytes Absolute 0.03 #; Lymphocytes # 0.4 10*3/uL (1.4-4.0); Lymphocytes % 9.8 % (21.3-54.2); Mean Corpuscular HGB Conc 33.6 GM/DL (32-36); Mean Corpuscular Volume 90.9 FL (87-102); Mean Platelet Volume 9.9 FL (9.6-12.0); Monocytes % 5.5 % (1.7-12.7); Neutrophils % 80.6 % (38.7-73.9); Platelet Count 283 T/CUMM (130-400); Red Blood Count 2.65 MC/CUMM (3.8-5.5); Red Cell Distribution Width 12.9 % (9.3-17.3); White Blood Count 4.2 T/CUMM (4-12)
[2020-04-07 08:32] LABS: Calcium 8.9 MG/DL (8.5-10.1); Osmolality,Calculated 275.1 MOS/KG (273-304); Potassium 4.5 MMOL/L (3.5-5.1)
[2020-04-07] MEDS: INSULIN LISPRO 100 UNIT/ML SUBCUT SCH ×4 (10:09→21:19)
[2020-04-07] MEDS: FLUTICASONE 50 MCG NASAL SPRAY 16 GM BOTTLE BOTH NARES SCH (10:13)
[2020-04-07] MEDS: MULTIVITAMIN (CENTRUM) TABLET PO SCH (10:13)
[2020-04-07] MEDS: ATORVASTATIN 40 MG TABLET PO SCH (10:14)
[2020-04-07] MEDS: ASPIRIN CHEW 81 MG TABLET PO SCH (10:14)
[2020-04-07] MEDS: carBAMazepine 200 MG TABLET PO SCH (10:14)
[2020-04-07] MEDS: LORATADINE 10 MG TABLET PO SCH (10:14)
[2020-04-07] MEDS: DULoxetine 30 MG CAPSULE PO SCH ×2 (10:15→21:14)
[2020-04-07] MEDS: PANTOPRAZOLE 40 MG TABLET PO SCH ×2 (10:15→21:14)
[2020-04-07] MEDS: minoxidiL 2.5 MG TABLET PO SCH ×3 (10:16→21:14)
[2020-04-07] MEDS: LOSARTAN 50 MG TABLET PO SCH ×2 (10:16→15:05)
[2020-04-07] MEDS: DILTIAZEM CD 180 MG CAPSULE PO SCH ×2 (10:16→15:05)
[2020-04-07] MEDS: ISOSORBIDE MONONITRATE 30 MG TABLET PO SCH ×2 (10:16→15:06)
[2020-04-07] MEDS: MONTELUKAST 10 MG TABLET PO SCH (10:17)
[2020-04-07] MEDS: HEPARIN 5,000 UNIT/1 ML VIAL SUBCUT SCH ×2 (10:19→21:15)
[2020-04-07] MEDS: METOPROLOL SUCCINATE XL 100 MG TABLET PO SCH ×3 (10:19→21:14)
[2020-04-08 05:20] LABS: Basophils % 0.9 % (0.0-0.8); Eosinophils # 0.1 10*3/uL (0.0-0.87); Eosinophils % 2.3 % (0.00-10.9); Hemoglobin 8.2 GM/DL (12.0-16.0); Immature Granulocytes % 0.9 %; Immature Granulocytes Absolute 0.03 #; Lymphocytes # 0.5 10*3/uL (1.4-4.0); Lymphocytes % 13.8 % (21.3-54.2); Mean Corpuscular HGB Conc 34.2 GM/DL (32-36); Mean Corpuscular Volume 91.3 FL (87-102); Mean Platelet Volume 10.1 FL (9.6-12.0); Monocytes % 8.8 % (1.7-12.7); Neutrophils % 73.3 % (38.7-73.9); Platelet Count 247 T/CUMM (130-400); Red Blood Count 2.63 MC/CUMM (3.8-5.5); Red Cell Distribution Width 12.9 % (9.3-17.3); White Blood Count 3.4 T/CUMM (4-12)
[2020-04-08 05:38] LABS: Calcium 8.6 MG/DL (8.5-10.1); Osmolality,Calculated 273.8 MOS/KG (273-304); Potassium 4.5 MMOL/L (3.5-5.1)
[2020-04-08] MEDS ORDERED: MAGNESIUM SULF RIDER 2 GM in PREMIX 1 EACH IV PRN (07:33)
[2020-04-08] MEDS: INSULIN LISPRO 100 UNIT/ML SUBCUT SCH ×4 (08:30→20:57)
[2020-04-08] MEDS: DILTIAZEM CD 180 MG CAPSULE PO SCH (09:13)
[2020-04-08] MEDS: ASPIRIN CHEW 81 MG TABLET PO SCH (09:13)
[2020-04-08] MEDS: MULTIVITAMIN (CENTRUM) TABLET PO SCH (09:13)
[2020-04-08] MEDS: DULoxetine 30 MG CAPSULE PO SCH ×2 (09:13→20:57)
[2020-04-08] MEDS: carBAMazepine 200 MG TABLET PO SCH (09:13)
[2020-04-08] MEDS: minoxidiL 2.5 MG TABLET PO SCH ×2 (09:14→20:56)
[2020-04-08] MEDS: METOPROLOL SUCCINATE XL 100 MG TABLET PO SCH ×2 (09:14→20:56)
[2020-04-08] MEDS: PANTOPRAZOLE 40 MG TABLET PO SCH ×2 (09:14→20:56)
[2020-04-08] MEDS: MONTELUKAST 10 MG TABLET PO SCH (09:14)
[2020-04-08] MEDS: HEPARIN 5,000 UNIT/1 ML VIAL SUBCUT SCH ×2 (09:14→20:56)
[2020-04-08] MEDS: LORATADINE 10 MG TABLET PO SCH (09:14)
[2020-04-08] MEDS: ATORVASTATIN 40 MG TABLET PO SCH (09:14)
[2020-04-08] MEDS: LOSARTAN 50 MG TABLET PO SCH (09:14)
[2020-04-08] MEDS: ISOSORBIDE MONONITRATE 30 MG TABLET PO SCH (09:14)
[2020-04-08] MEDS: FLUTICASONE 50 MCG NASAL SPRAY 16 GM BOTTLE BOTH NARES SCH (09:16)
[2020-04-08] MEDS: ACETAMINOPHEN 325 MG TABLET PO PRN ×2 (16:47→21:18)
[2020-04-09 05:52] LABS: Basophils % 0.6 % (0.0-0.8); Eosinophils # 0.1 10*3/uL (0.0-0.87); Eosinophils % 2.8 % (0.00-10.9); Hematocrit 23.2 VOL% (35.7-47.0); Hemoglobin 7.9 GM/DL (12.0-16.0); Immature Granulocytes % 0.9 %; Immature Granulocytes Absolute 0.03 #; Lymphocytes # 0.5 10*3/uL (1.4-4.0); Mean Corpuscular HGB Conc 34.1 GM/DL (32-36); Mean Corpuscular Volume 88.9 FL (87-102); Mean Platelet Volume 9.5 FL (9.6-12.0); Monocytes % 7.7 % (1.7-12.7); Platelet Count 280 T/CUMM (130-400); Red Blood Count 2.61 MC/CUMM (3.8-5.5); Red Cell Distribution Width 13.2 % (9.3-17.3); White Blood Count 3.3 T/CUMM (4-12)
[2020-04-09 06:15] LABS: Calcium 8.6 MG/DL (8.5-10.1); Osmolality,Calculated 276.9 MOS/KG (273-304); Potassium 4.8 MMOL/L (3.5-5.1)
[2020-04-09 06:33] LABS: Band Neutrophils 1 % (0-10); Eosinophils 2 % (0-10); Lymphocytes 18 % (20-55); Segmented Neutrophils 71 % (50-85); Total Cells Counted 100
[2020-04-09 06:34] LABS: Platelet Estimate Normal
[2020-04-09] MEDS: INSULIN LISPRO 100 UNIT/ML SUBCUT SCH ×4 (07:29→20:55)
[2020-04-09] MEDS ORDERED: TUBERCULIN SKIN TEST 0.1 ML SYRINGE INTRADERM ONE (10:51)
[2020-04-09] MEDS: minoxidiL 2.5 MG TABLET PO SCH ×2 (12:05→20:54)
[2020-04-09] MEDS: DULoxetine 30 MG CAPSULE PO SCH ×2 (12:05→20:54)
[2020-04-09] MEDS: HEPARIN 5,000 UNIT/1 ML VIAL SUBCUT SCH ×2 (12:05→20:55)
[2020-04-09] MEDS: METOPROLOL SUCCINATE XL 100 MG TABLET PO SCH ×2 (12:06→20:54)
[2020-04-09] MEDS: ASPIRIN CHEW 81 MG TABLET PO SCH (12:23)
[2020-04-09] MEDS: carBAMazepine 200 MG TABLET PO SCH (12:23)
[2020-04-09] MEDS: DILTIAZEM CD 180 MG CAPSULE PO SCH (12:24)
[2020-04-09] MEDS: LORATADINE 10 MG TABLET PO SCH (12:24)
[2020-04-09] MEDS: ISOSORBIDE MONONITRATE 30 MG TABLET PO SCH (12:25)
[2020-04-09] MEDS: ATORVASTATIN 40 MG TABLET PO SCH (12:25)
[2020-04-09] MEDS: MULTIVITAMIN (CENTRUM) TABLET PO SCH (12:26)
[2020-04-09] MEDS: MONTELUKAST 10 MG TABLET PO SCH (12:26)
[2020-04-09] MEDS: LOSARTAN 50 MG TABLET PO SCH (12:26)
[2020-04-09] MEDS: FLUTICASONE 50 MCG NASAL SPRAY 16 GM BOTTLE BOTH NARES SCH (12:27)
[2020-04-09] MEDS: PANTOPRAZOLE 40 MG TABLET PO SCH ×2 (12:28→20:54)
[2020-04-09] MEDS: ACETAMINOPHEN 325 MG TABLET PO PRN (15:52)
[2020-04-10] MEDS ORDERED: ZALEPLON 5 MG CAPSULE PO PRN (00:39)
[2020-04-10 05:21] LABS: Basophils % 0.6 % (0.0-0.8); Eosinophils # 0.1 10*3/uL (0.0-0.87); Eosinophils % 2.6 % (0.00-10.9); Hemoglobin 7.7 GM/DL (12.0-16.0); Immature Granulocytes % 0.3 %; Immature Granulocytes Absolute 0.01 #; Lymphocytes # 0.4 10*3/uL (1.4-4.0); Lymphocytes % 11.9 % (21.3-54.2); Mean Corpuscular HGB Conc 33.5 GM/DL (32-36); Mean Corpuscular Volume 90.2 FL (87-102); Mean Platelet Volume 9.9 FL (9.6-12.0); Neutrophils % 76.6 % (38.7-73.9); Platelet Count 257 T/CUMM (130-400); Red Blood Count 2.55 MC/CUMM (3.8-5.5); Red Cell Distribution Width 13.1 % (9.3-17.3); White Blood Count 3.1 T/CUMM (4-12)
[2020-04-10 05:49] LABS: Calcium 8.8 MG/DL (8.5-10.1); Osmolality,Calculated 271.7 MOS/KG (273-304); Potassium 4.3 MMOL/L (3.5-5.1)
[2020-04-10] MEDS: INSULIN LISPRO 100 UNIT/ML SUBCUT SCH ×2 (07:54→11:28)
[2020-04-10] MEDS: ASPIRIN CHEW 81 MG TABLET PO SCH (08:59)
[2020-04-10] MEDS: METOPROLOL SUCCINATE XL 100 MG TABLET PO SCH (09:00)
[2020-04-10] MEDS: PANTOPRAZOLE 40 MG TABLET PO SCH (09:00)
[2020-04-10] MEDS: DILTIAZEM CD 180 MG CAPSULE PO SCH (09:00)
[2020-04-10] MEDS: LOSARTAN 50 MG TABLET PO SCH (09:01)
[2020-04-10] MEDS: DULoxetine 30 MG CAPSULE PO SCH (09:01)
[2020-04-10] MEDS: MONTELUKAST 10 MG TABLET PO SCH (09:02)
[2020-04-10] MEDS: ATORVASTATIN 40 MG TABLET PO SCH (09:02)
[2020-04-10] MEDS: MULTIVITAMIN (CENTRUM) TABLET PO SCH (09:02)
[2020-04-10] MEDS: ISOSORBIDE MONONITRATE 30 MG TABLET PO SCH (09:02)
[2020-04-10] MEDS: minoxidiL 2.5 MG TABLET PO SCH (09:02)
[2020-04-10] MEDS: LORATADINE 10 MG TABLET PO SCH (09:02)
[2020-04-10] MEDS: carBAMazepine 200 MG TABLET PO SCH (09:02)
[2020-04-10] MEDS: FLUTICASONE 50 MCG NASAL SPRAY 16 GM BOTTLE BOTH NARES SCH (09:03)
[2020-04-10] MEDS: HEPARIN 5,000 UNIT/1 ML VIAL SUBCUT SCH (09:04)
[2020-04-10 15:38] VITALS: BP 136/55
== END 2020-04-10 15:30 | disposition swing bed (61) | DRG 640 ==
LOC: EDBD → EDUNIT# → N.ED 11:38 → N.EDINP 11:38 → N.TELEN 16:28 → SUATTDRO 03-22 10:39
PROVIDERS: ADMIT Internal Medicine; ATTEND Internal Medicine

== ENCOUNTER 2020-12-31 07:29 | Inpatient (IN) ==
[2020-12-31 08:21] LABS: Basophils % 0.2 % (0.0-0.8); Eosinophils # 0.1 10*3/uL (0.0-0.87); Eosinophils % 0.5 % (0.00-10.9); Hematocrit 33.5 VOL% (35.7-47.0); Hemoglobin 10.3 GM/DL (12.0-16.0); Immature Granulocytes % 0.6 %; Lymphocytes # 0.6 10*3/uL (1.4-4.0); Lymphocytes % 3.7 % (21.3-54.2); Mean Corpuscular HGB Conc 30.7 GM/DL (32-36); Mean Corpuscular Volume 91.5 FL (87-102); Mean Platelet Volume 9.3 FL (9.6-12.0); Monocytes % 3.9 % (1.7-12.7); Neutrophils % 91.1 % (38.7-73.9); Platelet Count 304 T/CUMM (130-400); Red Blood Count 3.66 MC/CUMM (3.8-5.5); Red Cell Distribution Width 14.2 % (9.3-17.3); White Blood Count 16.7 T/CUMM (4-12)
[2020-12-31 08:44] LABS: Albumin 2.4 G/DL (3.4-5.0); Bilirubin,Total 0.7 MG/DL (0.20-1.00); Calcium 9.2 MG/DL (8.5-10.1); Osmolality,Calculated 278.9 MOS/KG (273-304); Potassium 4.2 MMOL/L (3.5-5.1); Total Protein 8.4 G/DL (6.4-8.2)
[2020-12-31 08:45] LABS: Lymphocytes 4 % (20-55); Segmented Neutrophils 92 % (50-85); Total Cells Counted 100
[2020-12-31 08:46] LABS: Anisocytosis 1+; Hypochromasia Slight; Microcytosis 1+
[2020-12-31 08:48] LABS: Platelet Estimate Adequate
[2020-12-31] MEDS ORDERED: ALBUTEROL/IPRATROPIUM 3 ML NEB RESP TX PRN (11:53)
[2020-12-31] MEDS ORDERED: MORPHINE 2 MG/1 ML SYRINGE IV STA (11:56)
[2020-12-31] MEDS ORDERED: SODIUM CHLORIDE 0.45% 1,000 ML IV SCH (12:30)
[2020-12-31 12:41] LABS: PT Patient Result 11.6 SECS (10.5-12.0)
[2020-12-31] MEDS ORDERED: DEXTROSE 50% 25 GM/50 ML VIAL IV PRN (12:55)
[2020-12-31] MEDS ORDERED: GLUCAGON 1 MG VIAL IM PRN (12:55)
[2020-12-31] MEDS ORDERED: hydrALAZINE 20 MG/1 ML VIAL IV PRN (12:55)
[2020-12-31] MEDS: LACTATED RINGERS 1,000 ML IV SCH (13:04)
[2020-12-31] MEDS: PIPERACILLIN/TAZOBACTAM 3,375 MG in SODIUM CHLORIDE 0.9% 100 ML IV SCH ×2 (13:05→20:52)
[2020-12-31] MEDS: INSULIN LISPRO 100 UNIT/ML SUBCUT SCH ×2 (15:53→20:52)
[2020-12-31] MEDS: KETOROLAC 30 MG/1 ML VIAL IV PRN (22:08)
[2021-01-01] MEDS: LACTATED RINGERS 1,000 ML IV SCH ×4 (00:54→20:52)
[2021-01-01] MEDS: PIPERACILLIN/TAZOBACTAM 3,375 MG in SODIUM CHLORIDE 0.9% 100 ML IV SCH ×3 (03:10→20:53)
[2021-01-01 06:30] LABS: Basophils % 0.2 % (0.0-0.8); Eosinophils # 0.2 10*3/uL (0.0-0.87); Eosinophils % 1.4 % (0.00-10.9); Hematocrit 30.9 VOL% (35.7-47.0); Hemoglobin 9.4 GM/DL (12.0-16.0); Immature Granulocytes % 0.4 %; Immature Granulocytes Absolute 0.05 #; Lymphocytes # 0.9 10*3/uL (1.4-4.0); Lymphocytes % 7.7 % (21.3-54.2); Mean Corpuscular HGB Conc 30.4 GM/DL (32-36); Mean Platelet Volume 9.6 FL (9.6-12.0); Monocytes % 3.5 % (1.7-12.7); Neutrophils % 86.8 % (38.7-73.9); Platelet Count 219 T/CUMM (130-400); Red Blood Count 3.36 MC/CUMM (3.8-5.5); Red Cell Distribution Width 14.3 % (9.3-17.3); White Blood Count 11.1 T/CUMM (4-12)
[2021-01-01 07:05] LABS: Albumin 1.8 G/DL (3.4-5.0); Calcium 8.8 MG/DL (8.5-10.1); Osmolality,Calculated 279.8 MOS/KG (273-304); Potassium 4.5 MMOL/L (3.5-5.1); Total Protein 6.8 G/DL (6.4-8.2)
[2021-01-01] MEDS: INSULIN LISPRO 100 UNIT/ML SUBCUT SCH ×4 (07:43→20:53)
[2021-01-01] MEDS: PANTOPRAZOLE 40 MG VIAL IV SCH (08:06)
[2021-01-01] MEDS ORDERED: MAGNESIUM SULF RIDER 2 GM/50 ML PREMIX IV ONE (09:00)
[2021-01-01] MEDS: HEPARIN DRIP 25,000 UNITS/500 ML PREMIX IV SCH (15:35)
[2021-01-01] MEDS: AURYXIA PO SCH (16:52)
[2021-01-01] MEDS: MELATONIN 3 MG TABLET PO SCH (20:54)
[2021-01-01] MEDS: DULoxetine 30 MG CAPSULE PO SCH (20:54)
[2021-01-01] MEDS: FLUTICASONE/SALMETEROL 100-50 DISKUS 14 DOSE INH SCH (20:55)
[2021-01-01] MEDS: TRIAMCINOLONE 0.1% CREAM 15 GM TUBE TOP SCH (20:55)
[2021-01-01] MEDS: ATORVASTATIN 40 MG TABLET PO SCH (20:55)
[2021-01-01] MEDS: minoxidiL 2.5 MG TABLET PO SCH (20:55)
[2021-01-01] MEDS: HYDROmorphone 2 MG/1 ML VIAL IV PRN (23:01)
[2021-01-02] MEDS: PIPERACILLIN/TAZOBACTAM 3,375 MG in SODIUM CHLORIDE 0.9% 100 ML IV SCH ×2 (04:17→12:43)
[2021-01-02 05:16] LABS: Basophils % 0.2 % (0.0-0.8); Eosinophils # 0.1 10*3/uL (0.0-0.87); Eosinophils % 0.9 % (0.00-10.9); Hematocrit 28.7 VOL% (35.7-47.0); Hemoglobin 8.7 GM/DL (12.0-16.0); Immature Granulocytes % 0.5 %; Immature Granulocytes Absolute 0.05 #; Lymphocytes # 0.6 10*3/uL (1.4-4.0); Lymphocytes % 6.2 % (21.3-54.2); Mean Corpuscular HGB Conc 30.3 GM/DL (32-36); Mean Corpuscular Volume 90.8 FL (87-102); Mean Platelet Volume 9.6 FL (9.6-12.0); Monocytes % 4.4 % (1.7-12.7); Neutrophils % 87.8 % (38.7-73.9); Platelet Count 249 T/CUMM (130-400); Red Blood Count 3.16 MC/CUMM (3.8-5.5); Red Cell Distribution Width 14.1 % (9.3-17.3); White Blood Count 9.6 T/CUMM (4-12)
[2021-01-02 05:50] LABS: Calcium 8.7 MG/DL (8.5-10.1); Osmolality,Calculated 277.5 MOS/KG (273-304)
[2021-01-02] MEDS: minoxidiL 2.5 MG TABLET PO SCH ×2 (09:39→23:57)
[2021-01-02] MEDS: MONTELUKAST 10 MG TABLET PO SCH (09:39)
[2021-01-02] MEDS: carBAMazepine 200 MG TABLET PO SCH (09:39)
[2021-01-02] MEDS: MAGNESIUM CHLORIDE 64 MG TABLET PO SCH (09:39)
[2021-01-02] MEDS: FLUTICASONE/SALMETEROL 100-50 DISKUS 14 DOSE INH SCH ×2 (09:39→23:59)
[2021-01-02] MEDS: METOPROLOL SUCCINATE XL 100 MG TABLET PO SCH (09:40)
[2021-01-02] MEDS: FERROUS SULFATE 325 MG TABLET PO SCH (09:40)
[2021-01-02] MEDS: ISOSORBIDE MONONITRATE 30 MG TABLET PO SCH (09:40)
[2021-01-02] MEDS: LORATADINE 10 MG TABLET PO SCH (09:40)
[2021-01-02] MEDS: DULoxetine 30 MG CAPSULE PO SCH ×2 (09:40→23:57)
[2021-01-02] MEDS: DILTIAZEM CD 180 MG CAPSULE PO SCH (09:41)
[2021-01-02] MEDS: TRIAMCINOLONE 0.1% CREAM 15 GM TUBE TOP SCH ×2 (09:41→23:59)
[2021-01-02] MEDS: INSULIN LISPRO 100 UNIT/ML SUBCUT SCH ×4 (09:42→19:36)
[2021-01-02] MEDS: AURYXIA PO SCH ×3 (09:43→17:32)
[2021-01-02] MEDS: PANTOPRAZOLE 40 MG VIAL IV SCH (09:43)
[2021-01-02] MEDS: LACTATED RINGERS 1,000 ML IV SCH (09:48)
[2021-01-02] MEDS: HEPARIN 5,000 UNIT/1 ML VIAL IV PRN (14:04)
[2021-01-02] MEDS: HEPARIN DRIP 25,000 UNITS/500 ML PREMIX IV SCH (17:02)
[2021-01-02] MEDS: ERTAPENEM 500 MG in SODIUM CHLORIDE 0.9% 100 ML IV SCH (17:31)
[2021-01-02] MEDS: MENTHOL/ZINC OXIDE OINT 71 GM JAR TOP SCH ×2 (17:31→23:59)
[2021-01-02] MEDS: HYDROmorphone 2 MG/1 ML VIAL IV PRN (19:09)
[2021-01-02] MEDS: ATORVASTATIN 40 MG TABLET PO SCH (23:57)
[2021-01-02] MEDS: MELATONIN 3 MG TABLET PO SCH (23:57)
[2021-01-03 05:31] LABS: Basophils % 0.2 % (0.0-0.8); Eosinophils # 0.1 10*3/uL (0.0-0.87); Eosinophils % 0.6 % (0.00-10.9); Hematocrit 26.9 VOL% (35.7-47.0); Hemoglobin 8.2 GM/DL (12.0-16.0); Immature Granulocytes % 0.7 %; Immature Granulocytes Absolute 0.09 #; Lymphocytes # 0.6 10*3/uL (1.4-4.0); Lymphocytes % 4.7 % (21.3-54.2); Mean Corpuscular HGB Conc 30.5 GM/DL (32-36); Mean Corpuscular Volume 90.3 FL (87-102); Mean Platelet Volume 9.4 FL (9.6-12.0); Monocytes % 4.4 % (1.7-12.7); Neutrophils % 89.4 % (38.7-73.9); Platelet Count 269 T/CUMM (130-400); Red Blood Count 2.98 MC/CUMM (3.8-5.5); Red Cell Distribution Width 14.1 % (9.3-17.3); White Blood Count 12.2 T/CUMM (4-12)
[2021-01-03 05:46] LABS: Calcium 8.6 MG/DL (8.5-10.1); Osmolality,Calculated 276.7 MOS/KG (273-304); Potassium 4.1 MMOL/L (3.5-5.1)
[2021-01-03 06:00] LABS: Hypochromasia 1+; Lymphocytes 5 % (20-55); Microcytosis 1+; Ovalocytes Slight; Platelet Estimate Normal; Segmented Neutrophils 93 % (50-85); Total Cells Counted 100
[2021-01-03] MEDS: HEPARIN 5,000 UNIT/1 ML VIAL IV PRN (07:30)
[2021-01-03 08:46] LABS: Hepatitis B Core IgM Quant 0.07 Index; Hepatitis B Surface Ag Quant < 0.10 Index; Hepatitis B Surface Ag Result Non-Reactive (NonReactive); Hepatitis C Virus Ab Quant 0.19 Index; Hepatitis C Virus Ab Result Non-Reactive (NonReactive)
[2021-01-03] MEDS ORDERED: ALTEPLASE 2 MG VIAL IV SCH ×2 (09:00)
[2021-01-03] MEDS ORDERED: HEPARIN 10,000 UNIT/10 ML VIAL IV ONE (09:00)
[2021-01-03] MEDS: INSULIN LISPRO 100 UNIT/ML SUBCUT SCH ×4 (09:13→21:51)
[2021-01-03] MEDS: AURYXIA PO SCH ×3 (09:16→19:42)
[2021-01-03] MEDS: ACETAMINOPHEN 325 MG TABLET PO PRN (09:30)
[2021-01-03] MEDS: ERTAPENEM 500 MG in SODIUM CHLORIDE 0.9% 100 ML IV SCH (09:30)
[2021-01-03] MEDS: DILTIAZEM CD 180 MG CAPSULE PO SCH (13:15)
[2021-01-03] MEDS: minoxidiL 2.5 MG TABLET PO SCH (13:16)
[2021-01-03] MEDS: METOPROLOL SUCCINATE XL 100 MG TABLET PO SCH (13:29)
[2021-01-03] MEDS: FLUTICASONE/SALMETEROL 100-50 DISKUS 14 DOSE INH SCH ×2 (14:07→21:53)
[2021-01-03] MEDS: MENTHOL/ZINC OXIDE OINT 71 GM JAR TOP SCH ×2 (14:07→21:53)
[2021-01-03] MEDS: TRIAMCINOLONE 0.1% CREAM 15 GM TUBE TOP SCH ×2 (14:07→21:53)
[2021-01-03] MEDS: ISOSORBIDE MONONITRATE 30 MG TABLET PO SCH (14:08)
[2021-01-03] MEDS: LORATADINE 10 MG TABLET PO SCH (14:08)
[2021-01-03] MEDS: DULoxetine 30 MG CAPSULE PO SCH ×2 (14:08→21:40)
[2021-01-03] MEDS: MAGNESIUM CHLORIDE 64 MG TABLET PO SCH (14:08)
[2021-01-03] MEDS: carBAMazepine 200 MG TABLET PO SCH (14:08)
[2021-01-03] MEDS: MONTELUKAST 10 MG TABLET PO SCH (14:08)
[2021-01-03] MEDS: KETOROLAC 30 MG/1 ML VIAL IV PRN (14:09)
[2021-01-03] MEDS: PANTOPRAZOLE 40 MG VIAL IV SCH (14:13)
[2021-01-03] MEDS: FERROUS SULFATE 325 MG TABLET PO SCH (14:15)
[2021-01-03] MEDS: ATORVASTATIN 40 MG TABLET PO SCH (21:40)
[2021-01-03] MEDS: MELATONIN 3 MG TABLET PO SCH (21:40)
[2021-01-03] MEDS: HEPARIN DRIP 25,000 UNITS/500 ML PREMIX IV SCH (21:46)
[2021-01-04 05:39] LABS: Basophils % 0.3 % (0.0-0.8); Eosinophils # 0.1 10*3/uL (0.0-0.87); Eosinophils % 0.9 % (0.00-10.9); Hematocrit 27.2 VOL% (35.7-47.0); Hemoglobin 8.5 GM/DL (12.0-16.0); Immature Granulocytes % 0.5 %; Immature Granulocytes Absolute 0.04 #; Lymphocytes # 0.4 10*3/uL (1.4-4.0); Lymphocytes % 5.7 % (21.3-54.2); Mean Corpuscular HGB Conc 31.3 GM/DL (32-36); Mean Corpuscular Volume 88.6 FL (87-102); Mean Platelet Volume 9.4 FL (9.6-12.0); Monocytes % 5.8 % (1.7-12.7); Neutrophils % 86.8 % (38.7-73.9); Platelet Count 237 T/CUMM (130-400); Red Blood Count 3.07 MC/CUMM (3.8-5.5); Red Cell Distribution Width 14.1 % (9.3-17.3); White Blood Count 7.4 T/CUMM (4-12)
[2021-01-04 06:09] LABS: Calcium 8.3 MG/DL (8.5-10.1); Osmolality,Calculated 277.1 MOS/KG (273-304); Potassium 3.5 MMOL/L (3.5-5.1)
[2021-01-04] MEDS: AURYXIA PO SCH ×3 (07:20→16:11)
[2021-01-04] MEDS: INSULIN LISPRO 100 UNIT/ML SUBCUT SCH ×4 (07:20→20:16)
[2021-01-04] MEDS ORDERED: cloNIDine 0.3 MG/24 HR PATCH TRANSDERM SCH (09:00)
[2021-01-04] MEDS: ACETAMINOPHEN 325 MG TABLET PO PRN (09:14)
[2021-01-04] MEDS: ERTAPENEM 500 MG in SODIUM CHLORIDE 0.9% 100 ML IV SCH (10:50)
[2021-01-04] MEDS: FLUTICASONE/SALMETEROL 100-50 DISKUS 14 DOSE INH SCH ×2 (10:51→20:14)
[2021-01-04] MEDS: METOPROLOL SUCCINATE XL 100 MG TABLET PO SCH (10:51)
[2021-01-04] MEDS: TRIAMCINOLONE 0.1% CREAM 15 GM TUBE TOP SCH ×2 (10:51→20:15)
[2021-01-04] MEDS: LORATADINE 10 MG TABLET PO SCH (10:52)
[2021-01-04] MEDS: carBAMazepine 200 MG TABLET PO SCH (10:52)
[2021-01-04] MEDS: MONTELUKAST 10 MG TABLET PO SCH (10:52)
[2021-01-04] MEDS: FERROUS SULFATE 325 MG TABLET PO SCH (10:53)
[2021-01-04] MEDS: MAGNESIUM CHLORIDE 64 MG TABLET PO SCH (10:53)
[2021-01-04] MEDS: ISOSORBIDE MONONITRATE 30 MG TABLET PO SCH (10:53)
[2021-01-04] MEDS: MENTHOL/ZINC OXIDE OINT 71 GM JAR TOP SCH ×2 (10:53→20:15)
[2021-01-04] MEDS: DULoxetine 30 MG CAPSULE PO SCH ×2 (10:54→20:10)
[2021-01-04] MEDS: PANTOPRAZOLE 40 MG VIAL IV SCH (10:54)
[2021-01-04] MEDS: HEPARIN DRIP 25,000 UNITS/500 ML PREMIX IV SCH (16:11)
[2021-01-04] MEDS: HYDROmorphone 2 MG/1 ML VIAL IV PRN (20:10)
[2021-01-04] MEDS: ATORVASTATIN 40 MG TABLET PO SCH (20:10)
[2021-01-04] MEDS: MELATONIN 3 MG TABLET PO SCH (20:11)
[2021-01-05 04:12] LABS: Basophils % 0.3 % (0.0-0.8); Eosinophils # 0.1 10*3/uL (0.0-0.87); Eosinophils % 1.7 % (0.00-10.9); Hematocrit 27.4 VOL% (35.7-47.0); Hemoglobin 8.4 GM/DL (12.0-16.0); Immature Granulocytes % 0.7 %; Immature Granulocytes Absolute 0.04 #; Lymphocytes # 0.5 10*3/uL (1.4-4.0); Lymphocytes % 8.1 % (21.3-54.2); Mean Corpuscular HGB Conc 30.7 GM/DL (32-36); Mean Corpuscular Volume 90.4 FL (87-102); Mean Platelet Volume 9.4 FL (9.6-12.0); Monocytes % 5.9 % (1.7-12.7); Neutrophils % 83.3 % (38.7-73.9); Platelet Count 221 T/CUMM (130-400); Red Blood Count 3.03 MC/CUMM (3.8-5.5); White Blood Count 5.8 T/CUMM (4-12)
[2021-01-05 04:41] LABS: Calcium 8.4 MG/DL (8.5-10.1); Osmolality,Calculated 276.4 MOS/KG (273-304); Potassium 3.6 MMOL/L (3.5-5.1)
[2021-01-05] MEDS: INSULIN LISPRO 100 UNIT/ML SUBCUT SCH ×4 (08:55→20:59)
[2021-01-05] MEDS: ERTAPENEM 500 MG in SODIUM CHLORIDE 0.9% 100 ML IV SCH (10:24)
[2021-01-05] MEDS: MAGNESIUM CHLORIDE 64 MG TABLET PO SCH (10:25)
[2021-01-05] MEDS: METOPROLOL SUCCINATE XL 100 MG TABLET PO SCH (10:25)
[2021-01-05] MEDS: ISOSORBIDE MONONITRATE 30 MG TABLET PO SCH (10:25)
[2021-01-05] MEDS: DULoxetine 30 MG CAPSULE PO SCH ×2 (10:25→21:06)
[2021-01-05] MEDS: carBAMazepine 200 MG TABLET PO SCH (10:25)
[2021-01-05] MEDS: PANTOPRAZOLE 40 MG VIAL IV SCH (10:25)
[2021-01-05] MEDS: LORATADINE 10 MG TABLET PO SCH (10:26)
[2021-01-05] MEDS: FERROUS SULFATE 325 MG TABLET PO SCH (10:26)
[2021-01-05] MEDS: MENTHOL/ZINC OXIDE OINT 71 GM JAR TOP SCH ×2 (10:26→21:07)
[2021-01-05] MEDS: MONTELUKAST 10 MG TABLET PO SCH (10:26)
[2021-01-05] MEDS: FLUTICASONE/SALMETEROL 100-50 DISKUS 14 DOSE INH SCH ×2 (10:27→21:08)
[2021-01-05] MEDS: TRIAMCINOLONE 0.1% CREAM 15 GM TUBE TOP SCH ×2 (10:27→21:07)
[2021-01-05] MEDS: AURYXIA PO SCH ×3 (10:27→17:00)
[2021-01-05] MEDS: HEPARIN DRIP 25,000 UNITS/500 ML PREMIX IV SCH (16:33)
[2021-01-05] MEDS: ATORVASTATIN 40 MG TABLET PO SCH (21:06)
[2021-01-05] MEDS: MELATONIN 3 MG TABLET PO SCH (21:06)
[2021-01-05] MEDS: MYLANTA/LIDO VISC 2:1 300 ML BOTTLE SWISH/SWAL PRN (21:06)
[2021-01-05] MEDS: HYDROmorphone 2 MG/1 ML VIAL IV PRN (21:18)
[2021-01-06] MEDS: INSULIN LISPRO 100 UNIT/ML SUBCUT SCH ×4 (09:27→20:38)
[2021-01-06] MEDS: AURYXIA PO SCH ×3 (09:28→18:38)
[2021-01-06] MEDS: PANTOPRAZOLE 40 MG VIAL IV SCH (11:13)
[2021-01-06] MEDS: ONDANSETRON 4 MG/2 ML VIAL IV PRN ×2 (11:14→14:56)
[2021-01-06] MEDS ORDERED: HEPARIN 10,000 UNIT/10 ML VIAL IV PRN (12:16)
[2021-01-06] MEDS: carBAMazepine 200 MG TABLET PO SCH (14:53)
[2021-01-06] MEDS: METOPROLOL SUCCINATE XL 100 MG TABLET PO SCH (14:54)
[2021-01-06] MEDS: DULoxetine 30 MG CAPSULE PO SCH ×2 (14:54→20:36)
[2021-01-06] MEDS: ISOSORBIDE MONONITRATE 30 MG TABLET PO SCH (14:54)
[2021-01-06] MEDS: MONTELUKAST 10 MG TABLET PO SCH (14:54)
[2021-01-06] MEDS: MAGNESIUM CHLORIDE 64 MG TABLET PO SCH (14:54)
[2021-01-06] MEDS: HEPARIN DRIP 25,000 UNITS/500 ML PREMIX IV SCH (14:55)
[2021-01-06] MEDS: LORATADINE 10 MG TABLET PO SCH (14:55)
[2021-01-06] MEDS: MENTHOL/ZINC OXIDE OINT 71 GM JAR TOP SCH ×2 (14:55→20:37)
[2021-01-06] MEDS: FLUTICASONE/SALMETEROL 100-50 DISKUS 14 DOSE INH SCH ×2 (14:57→20:37)
[2021-01-06] MEDS: HYDROmorphone 2 MG/1 ML VIAL IV PRN (14:57)
[2021-01-06] MEDS: ERTAPENEM 500 MG in SODIUM CHLORIDE 0.9% 100 ML IV SCH (14:57)
[2021-01-06] MEDS: FERROUS SULFATE 325 MG TABLET PO SCH (15:08)
[2021-01-06] MEDS: MYLANTA/LIDO VISC 2:1 300 ML BOTTLE SWISH/SWAL PRN (15:08)
[2021-01-06] MEDS: TRIAMCINOLONE 0.1% CREAM 15 GM TUBE TOP SCH ×2 (15:09→20:37)
[2021-01-06] MEDS: MELATONIN 3 MG TABLET PO SCH (20:36)
[2021-01-06] MEDS: ATORVASTATIN 40 MG TABLET PO SCH (20:36)
[2021-01-07 06:54] LABS: Basophils % 0.4 % (0.0-0.8); Eosinophils # 0.1 10*3/uL (0.0-0.87); Eosinophils % 1.1 % (0.00-10.9); Hematocrit 27.4 VOL% (35.7-47.0); Hemoglobin 8.2 GM/DL (12.0-16.0); Immature Granulocytes % 1.2 %; Immature Granulocytes Absolute 0.07 #; Lymphocytes # 0.7 10*3/uL (1.4-4.0); Lymphocytes % 11.8 % (21.3-54.2); Mean Corpuscular HGB Conc 29.9 GM/DL (32-36); Mean Corpuscular Volume 90.7 FL (87-102); Mean Platelet Volume 9.6 FL (9.6-12.0); Monocytes % 7.5 % (1.7-12.7); Platelet Count 218 T/CUMM (130-400); Red Blood Count 3.02 MC/CUMM (3.8-5.5); Red Cell Distribution Width 14.2 % (9.3-17.3); White Blood Count 5.6 T/CUMM (4-12)
[2021-01-07 07:15] LABS: Hypochromasia 1+; Microcytosis 1+
[2021-01-07 07:16] LABS: Platelet Estimate Adequate
[2021-01-07 07:22] LABS: Calcium 8.5 MG/DL (8.5-10.1); Osmolality,Calculated 272.2 MOS/KG (273-304); Potassium 3.8 MMOL/L (3.5-5.1)
[2021-01-07] MEDS: INSULIN LISPRO 100 UNIT/ML SUBCUT SCH ×4 (08:15→20:46)
[2021-01-07] MEDS: AURYXIA PO SCH ×3 (08:15→16:39)
[2021-01-07] MEDS ORDERED: DEXTROSE 50% 25 GM/50 ML VIAL IV PRN (09:18)
[2021-01-07] MEDS: FERROUS SULFATE 325 MG TABLET PO SCH (10:13)
[2021-01-07] MEDS: METOPROLOL SUCCINATE XL 100 MG TABLET PO SCH (10:13)
[2021-01-07] MEDS: MAGNESIUM CHLORIDE 64 MG TABLET PO SCH (10:13)
[2021-01-07] MEDS: ISOSORBIDE MONONITRATE 30 MG TABLET PO SCH (10:13)
[2021-01-07] MEDS: carBAMazepine 200 MG TABLET PO SCH (10:13)
[2021-01-07] MEDS: DULoxetine 30 MG CAPSULE PO SCH ×2 (10:13→20:41)
[2021-01-07] MEDS: LORATADINE 10 MG TABLET PO SCH (10:14)
[2021-01-07] MEDS: ERTAPENEM 500 MG in SODIUM CHLORIDE 0.9% 100 ML IV SCH (10:14)
[2021-01-07] MEDS: TRIAMCINOLONE 0.1% CREAM 15 GM TUBE TOP SCH ×2 (10:14→20:45)
[2021-01-07] MEDS: MONTELUKAST 10 MG TABLET PO SCH (10:14)
[2021-01-07] MEDS: PANTOPRAZOLE 40 MG VIAL IV SCH (10:17)
[2021-01-07] MEDS: ONDANSETRON 4 MG/2 ML VIAL IV PRN (10:18)
[2021-01-07] MEDS: MYLANTA/LIDO VISC 2:1 300 ML BOTTLE SWISH/SWAL PRN ×2 (10:18→16:42)
[2021-01-07] MEDS: FLUTICASONE/SALMETEROL 100-50 DISKUS 14 DOSE INH SCH ×2 (10:20→20:40)
[2021-01-07] MEDS: MENTHOL/ZINC OXIDE OINT 71 GM JAR TOP SCH ×2 (10:20→20:40)
[2021-01-07] MEDS: HEPARIN DRIP 25,000 UNITS/500 ML PREMIX IV SCH ×2 (13:57→15:23)
[2021-01-07] MEDS: HYDROmorphone 2 MG/1 ML VIAL IV PRN (16:39)
[2021-01-07] MEDS: ATORVASTATIN 40 MG TABLET PO SCH (20:41)
[2021-01-07] MEDS: MELATONIN 3 MG TABLET PO SCH (20:41)
[2021-01-08] MEDS: ACETAMINOPHEN 325 MG TABLET PO PRN ×2 (02:29→10:32)
[2021-01-08] MEDS ORDERED: ALENDRONATE PO SCH (09:00)
[2021-01-08] MEDS: FLUTICASONE/SALMETEROL 100-50 DISKUS 14 DOSE INH SCH ×2 (10:30→21:25)
[2021-01-08] MEDS: AURYXIA PO SCH ×3 (10:30→17:47)
[2021-01-08] MEDS: METOPROLOL SUCCINATE XL 100 MG TABLET PO SCH (10:31)
[2021-01-08] MEDS: MAGNESIUM CHLORIDE 64 MG TABLET PO SCH (10:31)
[2021-01-08] MEDS: ISOSORBIDE MONONITRATE 30 MG TABLET PO SCH (10:31)
[2021-01-08] MEDS: MONTELUKAST 10 MG TABLET PO SCH (10:31)
[2021-01-08] MEDS: DULoxetine 30 MG CAPSULE PO SCH ×2 (10:31→21:24)
[2021-01-08] MEDS: LORATADINE 10 MG TABLET PO SCH (10:32)
[2021-01-08] MEDS: FERROUS SULFATE 325 MG TABLET PO SCH (10:32)
[2021-01-08] MEDS: PANTOPRAZOLE 40 MG VIAL IV SCH (10:32)
[2021-01-08] MEDS: TRIAMCINOLONE 0.1% CREAM 15 GM TUBE TOP SCH ×2 (10:33→21:25)
[2021-01-08] MEDS: carBAMazepine 200 MG TABLET PO SCH (10:37)
[2021-01-08] MEDS: INSULIN LISPRO 100 UNIT/ML SUBCUT SCH ×3 (13:24→21:26)
[2021-01-08] MEDS: ERTAPENEM 500 MG in SODIUM CHLORIDE 0.9% 100 ML IV SCH (13:25)
[2021-01-08] MEDS: MENTHOL/ZINC OXIDE OINT 71 GM JAR TOP SCH ×2 (13:25→21:25)
[2021-01-08] MEDS: MYLANTA/LIDO VISC 2:1 300 ML BOTTLE SWISH/SWAL PRN (14:10)
[2021-01-08] MEDS: ATORVASTATIN 40 MG TABLET PO SCH (21:25)
[2021-01-08] MEDS: MELATONIN 3 MG TABLET PO SCH (21:25)
[2021-01-09 01:01] LABS: Basophils % 0.3 % (0.0-0.8); Eosinophils # 0.1 10*3/uL (0.0-0.87); Eosinophils % 1.2 % (0.00-10.9); Hematocrit 26.6 VOL% (35.7-47.0); Hemoglobin 8.2 GM/DL (12.0-16.0); Immature Granulocytes % 0.9 %; Immature Granulocytes Absolute 0.06 #; Lymphocytes # 0.6 10*3/uL (1.4-4.0); Lymphocytes % 9.1 % (21.3-54.2); Mean Corpuscular HGB Conc 30.8 GM/DL (32-36); Mean Corpuscular Volume 89.6 FL (87-102); Mean Platelet Volume 9.4 FL (9.6-12.0); Neutrophils % 83.5 % (38.7-73.9); Platelet Count 205 T/CUMM (130-400); Red Blood Count 2.97 MC/CUMM (3.8-5.5); Red Cell Distribution Width 14.1 % (9.3-17.3); White Blood Count 6.9 T/CUMM (4-12)
[2021-01-09 01:24] LABS: Alanine Aminotransferase < 6 U/L (13-56); Albumin 1.6 G/DL (3.4-5.0); Alkaline Phosphatase 285 U/L (45-117); Aspartate Amino Transferase 28 U/L (0-37); Blood Urea Nitrogen 21 MG/DL (7-18); Calcium 8.6 MG/DL (8.5-10.1); Carbon Dioxide 26 MMOL/L (21-32); Estimated Glom Filtration Rate 14 ML/MIN; Glucose 129 MG/DL (74-106); Osmolality,Calculated 270.4 MOS/KG (273-304); Potassium 3.6 MMOL/L (3.5-5.1); Sodium 133 MMOL/L (136-145); Total Protein 6.9 G/DL (6.4-8.2)
[2021-01-09] MEDS: ERTAPENEM 500 MG in SODIUM CHLORIDE 0.9% 100 ML IV SCH (09:40)
[2021-01-09] MEDS: DULoxetine 30 MG CAPSULE PO SCH ×2 (09:41→22:56)
[2021-01-09] MEDS: ISOSORBIDE MONONITRATE 30 MG TABLET PO SCH (09:41)
[2021-01-09] MEDS: FERROUS SULFATE 325 MG TABLET PO SCH (09:41)
[2021-01-09] MEDS: MENTHOL/ZINC OXIDE OINT 71 GM JAR TOP SCH ×2 (09:42→22:56)
[2021-01-09] MEDS: FLUTICASONE/SALMETEROL 100-50 DISKUS 14 DOSE INH SCH ×2 (09:42→22:55)
[2021-01-09] MEDS: TRIAMCINOLONE 0.1% CREAM 15 GM TUBE TOP SCH ×2 (09:42→22:55)
[2021-01-09] MEDS: INSULIN LISPRO 100 UNIT/ML SUBCUT SCH ×4 (09:44→22:56)
[2021-01-09] MEDS: LORATADINE 10 MG TABLET PO SCH (09:44)
[2021-01-09] MEDS: METOPROLOL SUCCINATE XL 100 MG TABLET PO SCH (09:50)
[2021-01-09] MEDS: MAGNESIUM CHLORIDE 64 MG TABLET PO SCH (09:50)
[2021-01-09] MEDS: MONTELUKAST 10 MG TABLET PO SCH (09:50)
[2021-01-09] MEDS: carBAMazepine 200 MG TABLET PO SCH (09:50)
[2021-01-09] MEDS: PANTOPRAZOLE 40 MG VIAL IV SCH (09:51)
[2021-01-09] MEDS: AURYXIA PO SCH ×3 (12:55→16:43)
[2021-01-09] MEDS: ACETAMINOPHEN 325 MG TABLET PO PRN (18:32)
[2021-01-09] MEDS ORDERED: HEPARIN 5,000 UNIT/1 ML VIAL SUBCUT SCH (20:00)
[2021-01-09] MEDS: MELATONIN 3 MG TABLET PO SCH (22:54)
[2021-01-09] MEDS: ATORVASTATIN 40 MG TABLET PO SCH (22:56)
[2021-01-10] MEDS: ACETAMINOPHEN 325 MG TABLET PO PRN (00:44)
[2021-01-10] MEDS: ONDANSETRON 4 MG/2 ML VIAL IV PRN (05:39)
[2021-01-10] MEDS: MYLANTA/LIDO VISC 2:1 300 ML BOTTLE SWISH/SWAL PRN ×2 (05:42→20:34)
[2021-01-10] MEDS: INSULIN LISPRO 100 UNIT/ML SUBCUT SCH ×4 (08:17→20:34)
[2021-01-10] MEDS: FLUTICASONE/SALMETEROL 100-50 DISKUS 14 DOSE INH SCH ×2 (08:55→20:34)
[2021-01-10] MEDS: carBAMazepine 200 MG TABLET PO SCH (08:55)
[2021-01-10] MEDS: LORATADINE 10 MG TABLET PO SCH (08:55)
[2021-01-10] MEDS: MONTELUKAST 10 MG TABLET PO SCH (08:55)
[2021-01-10] MEDS: ISOSORBIDE MONONITRATE 30 MG TABLET PO SCH (08:55)
[2021-01-10] MEDS: METOPROLOL SUCCINATE XL 100 MG TABLET PO SCH (08:55)
[2021-01-10] MEDS: MENTHOL/ZINC OXIDE OINT 71 GM JAR TOP SCH ×2 (08:55→20:34)
[2021-01-10] MEDS: FERROUS SULFATE 325 MG TABLET PO SCH (08:55)
[2021-01-10] MEDS: TRIAMCINOLONE 0.1% CREAM 15 GM TUBE TOP SCH ×2 (08:55→20:34)
[2021-01-10] MEDS: MAGNESIUM CHLORIDE 64 MG TABLET PO SCH (08:56)
[2021-01-10] MEDS: PANTOPRAZOLE 40 MG VIAL IV SCH (08:56)
[2021-01-10] MEDS: AURYXIA PO SCH ×3 (08:56→16:05)
[2021-01-10] MEDS: DULoxetine 30 MG CAPSULE PO SCH ×2 (08:59→20:22)
[2021-01-10] MEDS ORDERED: HEPARIN 10,000 UNIT/10 ML VIAL IV SCH (14:00)
[2021-01-10] MEDS ORDERED: ALTEPLASE 2 MG VIAL IV SCH (14:00)
[2021-01-10] MEDS: ATORVASTATIN 40 MG TABLET PO SCH (20:22)
[2021-01-11] MEDS: INSULIN LISPRO 100 UNIT/ML SUBCUT SCH ×3 (07:25→15:54)
[2021-01-11] MEDS: AURYXIA PO SCH ×3 (08:32→16:20)
[2021-01-11] MEDS: FLUTICASONE/SALMETEROL 100-50 DISKUS 14 DOSE INH SCH (08:33)
[2021-01-11] MEDS: MENTHOL/ZINC OXIDE OINT 71 GM JAR TOP SCH (08:33)
[2021-01-11] MEDS: MONTELUKAST 10 MG TABLET PO SCH (08:34)
[2021-01-11] MEDS: DULoxetine 30 MG CAPSULE PO SCH (08:34)
[2021-01-11] MEDS: METOPROLOL SUCCINATE XL 100 MG TABLET PO SCH (08:34)
[2021-01-11] MEDS: TRIAMCINOLONE 0.1% CREAM 15 GM TUBE TOP SCH (08:34)
[2021-01-11] MEDS: ISOSORBIDE MONONITRATE 30 MG TABLET PO SCH (08:35)
[2021-01-11] MEDS: LORATADINE 10 MG TABLET PO SCH (08:35)
[2021-01-11] MEDS: carBAMazepine 200 MG TABLET PO SCH (08:35)
[2021-01-11] MEDS: PANTOPRAZOLE 40 MG VIAL IV SCH (08:36)
[2021-01-11] MEDS: FERROUS SULFATE 325 MG TABLET PO SCH (08:36)
[2021-01-11] MEDS: MAGNESIUM CHLORIDE 64 MG TABLET PO SCH (08:36)
[2021-01-11 16:04] VITALS: BP 134/86
== END 2021-01-11 19:18 | disposition hospice, home (50) | DRG 371 ==
LOC: N.ED 07:29 → SUATTDRO 12:56 → N.EDINP 12:56 → N.5E 14:56
PROVIDERS: ADMIT Internal Medicine; ATTEND Internal Medicine